=== PATIENT | male | born 1945 | race Caucasian/White ===

== ENCOUNTER 2018-06-09 20:04 | Inpatient (IN) | payer OTHER, MEDICARE ==
--- NOTE | 2018-06-09 20:18 | PDOC ---
History of Present Illness - General History Source: Patient Exam Limitations: No Limitations - History of Present Illness Initial Comments: 06/09/18 21:38 A portion of this note was documented by scribe services under my direction. I have reviewed the details of the note, within reason, and agree with the documentation. The case summary and management plan written by me. Assessment and plan: This is a 72-year-old male with history of non-insulin- dependent diabetes who has had a progressive infection in his foot for approximately one week. Patient said that he has some oral cactus fell on him and injured his foot and then it became infected. Patient also has gout and thinks that a component but this may be gout. Patient had a workup including CBC, comp, blood cultures, urine, urine cultures , EKG, chest x-ray. Patient's white count was normal and there is no left shift Patient's sodium was a little bit low, his BUN and creat were high as glucose was high and his alkaline phosphatase was mildly elevated. Patient given thank and Zosyn A CAT scan was done Patient will be admitted to a inpatient bed. <Dulce Fowler I - Last Filed: 06/09/18 21:38> - General History Source: Patient Exam Limitations: No Limitations - History of Present Illness Initial Comments: 06/09/18 21:57 The patient is a 72 year old male, with a significant PMH of lung cancer in the past (remission), CAD s/p stent kidney removal, HTN, gout and IDDM, who presents to the emergency room via EMS with left foot swelling that began approximately 1 week ago. The patient states a cactus fell on him two weeks ago infecting his left foot that has progressively worsened today. The patient notices pain when ambulating accompanied with a fever and chills. The patient denies chest pain, shortness of breath, headache and dizziness. Denies nausea, vomit, diarrhea and constipation. Denies dysuria, frequency, urgency and hematuria. PAST SURGICAL HISTORY: Left lobectomy FAMILY HISTORY: no pertinent history SOCIAL HISTORY: Former smoker (quit 30 years) MEDICATIONS: reviewed ALLERGIES: As per nursing notes Adult ROS General: No fevers or chills, no weakness, no weight loss HEENT: No change in vision. No sore throat,. No ear pain CardioVascular: No chest pain or shortness of breath Respiratory:No cough, or wheezing. Gastrointestinal: no nausea, vomiting, diarrhea or constipation, No rectal bleeding Genitourinary: No dysuria, hematuria, or frequency Musculoskeletal: No joint or muscle pain or swelling Neurologic: No headache, vertigo, dizziness or loss of consciousness Psychiatric: nor depression Skin: +Left foot swelling Endocrine: no increased thirst or abnormal weight change Allergic: no skin or latex allergy All other systems reviewed and normal Adult Exam: General: Well-nourished well-developed individual, no acute distress HEENT: Throat: Normal, tonsils normal, no erythema or exudate Neck: Supple, no meningeal signs, no lymphadenopathy Eyes::Pupils equal reactive and round, extraocular motion intact Chest: Nontender to palpation Cardiac: S1-S2 normal, regular rate and rhythm, no murmurs rubs or gallops Respiratory: Lungs clear to auscultation bilateral Abdomen: Soft, nondistended, normal bowel sounds, nontender to palpation diffusely Extremities: Warm, dry, no cyanosis, clubbing, or edema Skin: +Swelling erythematous extended to the mid foot increase warmth. Left great toe swollen and laceration to tissue. There is a wound to dorsum of the toe and plantar surface. No purulent discharge. Tenderness Neuro: Alert and oriented x3, nonfocal exam, grossly intact, normal gait Psych: Normal mood and affect <Magnus Guzman - Last Filed: 06/09/18 21:58> - General Chief Complaint: Pain, Acute Stated Complaint: INFECTION RIGHT FOOT Time Seen by Provider: 06/09/18 20:12 Past History - Past Medical History Cancer: Yes (LUNG, BLADDER) Cardiac Disorders: Yes (STENT X1) Diabetes: Yes (TYPE II) - Surgical History Lung Surgery: Yes (LEFT LOBECTOMY) - Suicide/Smoking/Psychosocial Hx Smoking History: Former smoker Have you smoked in the past 12 months: No If you are a former smoker, when did you quit?: 30 YRS AGO Hx Alcohol Use: Yes Drug/Substance Use Hx: No Substance Use Type: Alcohol <Dulce Fowler I - Last Filed: 06/09/18 21:38> <Magnus Guzman - Last Filed: 06/09/18 21:58> - Past Medical History Allergies/Adverse Reactions: Allergies Allergy/AdvReac Type Severity Reaction Status Date / Time No Known Allergies Allergy Verified 06/09/18 20:06 Home Medications: Ambulatory Orders Allopurinol 300 mg PO DAILY 10/12/16 Amlodipine Besylate [Norvasc -] 5 mg PO DAILY 10/12/16 Aspirin [ASA -] 81 mg PO DAILY 10/12/16 Atorvastatin Ca [Lipitor] 40 mg PO HS 10/12/16 Calcium Citrate/Vitamin D3 [Calcium Citrate - Vit D Caplet] 1 each PO DAILY Cholecalciferol (Vitamin D3) [Vitamin D3] 2,000 unit PO DAILY 10/12/16 Clopidogrel Bisulfate [Clopidogrel] 75 mg PO DAILY 10/12/16 Cyanocobalamin [Vitamin B12 -] 1,000 mcg PO DAILY 10/12/16 Fluoxetine HCl 40 mg PO DAILY 10/12/16 Glipizide [Glipizide ER] 10 mg PO DAILY 10/12/16 Insulin Detemir [Levemir Flextouch] 10 unit SQ HS 10/12/16 Levofloxacin [Levaquin] 750 mg PO DAILY #10 tablet 10/12/16 Liraglutide [Victoza -] 1.2 mg SQ DAILY@0700 10/12/16 Losartan Potassium 50 mg PO DAILY 10/12/16 Loteprednol Etabonate [Lotemax] 10 ml OD DAILY 10/12/16 Methylphenidate HCl 20 mg PO ASDIR PRN 10/12/16 Metoprolol Succinate [Toprol Xl -] 12.5 mg PO DAILY 10/12/16 Ropinirole HCl [Requip] 3 mg PO TID PRN 10/12/16 Vardenafil HCl [Levitra] 20 mg PO PRN PRN 10/12/16 *Physical Exam - Vital Signs Last Vital Signs Temp Pulse Resp BP Pulse Ox 98.6 F 65 16 104/56 98 06/09/18 20:07 06/09/18 20:07 06/09/18 20:07 06/09/18 20:07 06/09/18 20:07 <Magnus Guzman - Last Filed: 06/09/18 21:58> Heart Score/ECG Review - ECG Impressions Comment:: 06/09/18 21:01 Normal sinus rhythm. Possible left atrial enlargement . Left bundle branch block. Abnormal ECG. Vent Rate 80 bpm NH interval 192 ms QT/QTc 424/489 ms <Magnus Guzman - Last Filed: 06/09/18 21:58> ED Treatment Course - LABORATORY CBC & Chemistry Diagram: 06/09/18 20:40 06/09/18 20:40 <Dulce Fowler I - Last Filed: 06/09/18 21:38> - LABORATORY CBC & Chemistry Diagram: 06/09/18 20:40 06/09/18 20:40 <Magnus Guzman - Last Filed: 06/09/18 21:58> *DC/Admit/Observation/Transfer - Discharge Dispostion Decision to Admit order: Yes <Dulce Fowler I - Last Filed: 06/09/18 21:38> - Attestations Scribe Attestion: 06/09/18 21:58 Documentation prepared by Magnus Guzamn, acting as durable medical equipment technician for Dulce Fowler MD. <Magnus Guzman - Last Filed: 06/09/18 21:58> Diagnosis at time of Disposition: Cellulitis of foot - Discharge Dispostion Condition at time of disposition: Stable
[2018-06-09 21:04] LABS: HEMATOCRIT 42.6 % (35.4-49); HEMOGLOBIN 14.6 GM/dl (11.7-16.9); MCHC 34.3 g/dl (32.0-35.9); MEAN CELL VOLUME 93.6 fl (80-96); MEAN PLT VOLUME 8.5 fl (7.5-11.1); PLATELET COUNT 384 K/MM3 (134-434); RBC 4.55 M/mm3 (4.00-5.60); RDW 12.9 % (11.9-15.9); WHITE BLOOD COUNT 10.3 K/mm3 (4.0-10.8)
[2018-06-09] MEDS ORDERED: VANCOMYCIN 1,000 MG VIAL (RESTRICTED TO ID ONLY) ONE (21:13)
[2018-06-09 21:15] LABS: ALBUMIN 3.2 g/dl (3.5-5.0); ALK PHOS 123 U/L (32-92); ANION GAP 10 (8-16); BLOOD UREA NITROGEN 26 mg/dl (7-18); CALCIUM 8.9 mg/dl (8.4-10.2); CHLORIDE 100 mmol/L (98-107); CO2 23 mmol/L (22-28); CREATININE 1.6 mg/dl (0.6-1.3); GLUCOSE,RANDOM 159 mg/dl (74-106); POTASSIUM 4.7 mmol/L (3.5-5.1); SGOT/AST 21 U/L (10-42); SGPT/ALT 21 U/L (10-40); SODIUM 133 mmol/L (136-145); TOT PROT 6.7 g/dl (6.4-8.3)
[2018-06-09 21:45] LABS: PH,URINE 5.5 (4.5-8); URINE APPEARANCE Clear; URINE BILIRUBIN Negative (NEGATIVE); URINE COLOR Yellow; URINE GLUCOSE (UA) Negative (NEGATIVE); URINE KETONE Negative (NEGATIVE); URINE LEUK ESTERASE Negative (NEGATIVE); URINE NITRITE Negative (NEGATIVE); URINE UROBILINOGEN 0.2 (0.2-1.0)
[2018-06-09 21:46] LABS: URINE PROTEIN 2+ (NEGATIVE)
[2018-06-09] MEDS ORDERED: VANCOMYCIN 1 GRAM (PRE-DOCKED) 1,000 MG/250 ML BAG IVPB ONE (21:49)
[2018-06-09 21:51] LABS: PLATELET ESTIMATE ADEQUATE
[2018-06-09 21:52] LABS: URINE WBC 0-2 (0-2)
[2018-06-09 21:53] LABS: EPI CELLS FEW /HPF; URINE BACTERIA FEW /hpf (NEGATIVE)
--- NOTE | 2018-06-09 22:50 | HP ---
CHIEF COMPLAINT: L- Foot Infection PCP: HISTORY OF PRESENT ILLNESS: This is a 72-year-old male with history of ybl-brsyilb-jlhhgnnyk diabetes, CAD s /p stent, Glaucoma, R- Kidney Ca, Bladder Ca, Lung Ca (RT), Chronic Alcohol. Who presents to the ED with a progressive infection in his foot for approximately one week. Patient reports that he has some oral cactus fell on him and injured his foot and then it became infected. Patient also states" he has gout and thinks that a component". Patient reports walking barefoot in his front and backward generally. Patient denies fever chills, cough, SOB, CP, palpitations. Patient reports feeling depressed and stays home most of the time. Patient denies suicidal or homicidal ideation ER course was notable for: (1) CT of lower extremity- osteomyelitis (2) Na 133 (3) Recent Travel: None PAST MEDICAL HISTORY: See HPI PAST SURGICAL HISTORY: Cardiac Stent Cataract removed Corneal Replacement R-Eye Social History: Smoking: Former Alcohol: Daily Drugs: Denies Lives alone, retired Family History: Non-contributory Allergies No Known Allergies Allergy (Verified 06/09/18 20:06) HOME MEDICATIONS: Home Medications Medication Instructions Recorded Allopurinol 300 mg PO DAILY 10/12/16 Amlodipine Besylate [Norvasc -] 5 mg PO DAILY 10/12/16 Aspirin [ASA -] 81 mg PO DAILY 10/12/16 Atorvastatin Ca [Lipitor] 40 mg PO HS 10/12/16 Calcium Citrate/Vitamin D3 1 each PO DAILY 10/12/16 [Calcium Citrate - Vit D Caplet] Cholecalciferol (Vitamin D3) 2,000 unit PO DAILY 10/12/16 [Vitamin D3] Clopidogrel Bisulfate [Clopidogrel] 75 mg PO DAILY 10/12/16 Cyanocobalamin [Vitamin B12 -] 1,000 mcg PO DAILY 10/12/16 Fluoxetine HCl 40 mg PO DAILY 10/12/16 Glipizide [Glipizide ER] 10 mg PO DAILY 10/12/16 Insulin Detemir [Levemir Flextouch] 10 unit SQ HS 10/12/16 Levofloxacin [Levaquin] 750 mg PO DAILY #10 tablet 10/12/16 Liraglutide [Victoza -] 1.2 mg SQ DAILY@0700 10/12/16 Losartan Potassium 50 mg PO DAILY 10/12/16 Loteprednol Etabonate [Lotemax] 10 ml OD DAILY 10/12/16 Methylphenidate HCl 20 mg PO ASDIR PRN 10/12/16 Metoprolol Succinate [Toprol Xl -] 12.5 mg PO DAILY 10/12/16 Ropinirole HCl [Requip] 3 mg PO TID PRN 10/12/16 Vardenafil HCl [Levitra] 20 mg PO PRN PRN 10/12/16 REVIEW OF SYSTEMS CONSTITUTIONAL: Absent: fever, chills, diaphoresis, generalized weakness, malaise, loss of appetite, weight change HEENT: Absent: rhinorrhea, nasal congestion, throat pain, throat swelling, difficulty swallowing, mouth swelling, ear pain, eye pain, visual changes CARDIOVASCULAR: Absent: chest pain, syncope, palpitations, irregular heart rate, lightheadedness , peripheral edema RESPIRATORY: Absent: cough, shortness of breath, dyspnea with exertion, orthopnea, wheezing, stridor, hemoptysis GASTROINTESTINAL: Absent: abdominal pain, abdominal distension, nausea, vomiting, diarrhea, constipation, melena, hematochezia GENITOURINARY: Absent: dysuria, frequency, urgency, hesitancy, hematuria, flank pain, genital pain MUSCULOSKELETAL: Absent: myalgia, arthralgia, joint swelling, back pain, neck pain SKIN: redness and swelling to L- great toe/foot Absent: rash, itching, pallor HEMATOLOGIC/IMMUNOLOGIC: Absent: easy bleeding, easy bruising, lymphadenopathy, frequent infections ENDOCRINE: Absent: unexplained weight gain, unexplained weight loss, heat intolerance, cold intolerance NEUROLOGIC: Absent: headache, focal weakness or paresthesias, dizziness, unsteady gait, seizure, mental status changes, bladder or bowel incontinence PSYCHIATRIC: depression Absent: anxiety, suicidal or homicidal ideation, hallucinations. PHYSICAL EXAMINATION Vital Signs - 24 hr 06/09/18 20:07 Temperature 98.6 F Pulse Rate 65 Respiratory 16 Rate Blood Pressure 104/56 O2 Sat by Pulse 98 Oximetry (%) GENERAL: Awake, alert, and fully oriented, in no acute distress. HEAD: Normal with no signs of trauma. EYES: Pupils equal, round and reactive to light, extraocular movements intact, sclera anicteric, conjunctiva clear. No lid lag. EARS, NOSE, THROAT: Ears normal, nares patent, oropharynx clear without exudates. Moist mucous membranes. NECK: Normal range of motion, supple without lymphadenopathy, JVD, or masses. LUNGS: Breath sounds equal, clear to auscultation bilaterally. No wheezes, and no crackles. No accessory muscle use. HEART: Regular rate and rhythm, normal S1 and S2 without murmur, rub or gallop. ABDOMEN: Soft, nontender, not distended, normoactive bowel sounds, no guarding, no rebound, no masses. No hepatomegaly or splenomegaly. MUSCULOSKELETAL: Normal range of motion at all joints. No bony deformities or tenderness. No CVA tenderness. UPPER EXTREMITIES: 2+ pulses, warm, well-perfused. No cyanosis. No clubbing. No peripheral edema. LOWER EXTREMITIES: 2+ pulses, warm, well-perfused. No calf tenderness. +2 L- foot peripheral edema. NEUROLOGICAL: Cranial nerves II-XII intact. Normal speech. Normal gait. PSYCHIATRIC: Cooperative. Good eye contact. Appropriate mood and affect. SKIN: Warm, dry, normal turgor, normal capillary refill. no rashes, +erythema to L- great toe and dorsal aspect of foot with a lac to L- great toe, no purulent drainage noted. Laboratory Results - last 24 hr 06/09/18 06/09/18 06/09/18 20:40 20:40 20:40 WBC 10.3 RBC 4.55 Hgb 14.6 Hct 42.6 MCV 93.6 MCH 32.0 MCHC 34.3 RDW 12.9 Plt Count 384 MPV 8.5 Absolute Neuts (auto) 8.7 Neutrophils % No Result Required. Neutrophils % (Manual) 90.0 H Lymphocytes % No Result Required. Lymphocytes % (Manual) 7.0 L Platelet Estimate Adequate Sodium 133 L Potassium 4.7 Chloride 100 Carbon Dioxide 23 Anion Gap 10 BUN 26 H Creatinine 1.6 H Creat Clearance w eGFR 42.82 Random Glucose 159 H Calcium 8.9 Total Bilirubin 1.0 AST 21 ALT 21 Alkaline Phosphatase 123 H Creatine Kinase Troponin I 0.04 Total Protein 6.7 Albumin 3.2 L Urine Color Urine Appearance Urine pH Ur Specific [place] Urine Protein Urine Glucose (UA) Urine Ketones Urine Blood Urine Nitrite Urine Bilirubin Urine Urobilinogen Ur Leukocyte Esterase Urine RBC Urine WBC Ur Epithelial Cells Urine Bacteria Alcohol, Quantitative 06/09/18 06/09/18 06/09/18 20:40 20:40 21:40 WBC RBC Hgb Hct MCV MCH MCHC RDW Plt Count MPV Absolute Neuts (auto) Neutrophils % Neutrophils % (Manual) Lymphocytes % Lymphocytes % (Manual) Platelet Estimate Sodium Potassium Chloride Carbon Dioxide Anion Gap BUN Creatinine Creat Clearance w eGFR Random Glucose Calcium Total Bilirubin AST ALT Alkaline Phosphatase Creatine Kinase 56 Troponin I Total Protein Albumin Urine Color Yellow Urine Appearance Clear Urine pH 5.5 Ur Specific [place] 1.020 Urine Protein 2+ H Urine Glucose (UA) Negative Urine Ketones Negative Urine Blood Trace-lysed H Urine Nitrite Negative Urine Bilirubin Negative Urine Urobilinogen 0.2 Ur Leukocyte Esterase Negative Urine RBC 2-5 Urine WBC 0-2 Ur Epithelial Cells Few Urine Bacteria Few Alcohol, Quantitative < 5.0 ASSESSMENT/PLAN: 72 y/o man Admitted to [facility] for Cellulitis to L- foot, Diabetic Wound for further evaluation of their emergent condition. Plan: 1. ID: Cellulitis of L- foot, Diabetic Wound- CT of lower extremity showed osteomyelitis, Patient is afebrile, no leukocytosis, however +neutrophilia. Blood Cultures pending, Continue Vanco, Zosyn, Appreciate ID consult, Appreciate Vascular consult, Monitor CBC and vitals, Elevate extremity, neurovascular checks 2. CAD- s/p stent, continue home meds 3. Diabetes Mellitus- stable, BGMs, continue home meds 4. Hypertension- stable, continue home meds 5. Depression- stable, continue home meds, f/u with psych and continue group therapy outpatient 6. FEN- PO fluids as tolerated., Replete lytes prn, Low Na, Diabetic Diet 7. DVT ppx- SCDs, Heparin SQ Code Status: Full Code Dispo: Requires Inpatient Care Problem List - Problem (1) Cellulitis of foot Code(s): L03.119 - CELLULITIS OF UNSPECIFIED PART OF LIMB (2) Osteomyelitis Code(s): M86.9 - OSTEOMYELITIS, UNSPECIFIED (3) Diabetic foot infection Code(s): E11.628 - TYPE 2 DIABETES MELLITUS WITH OTHER SKIN COMPLICATIONS; L08.9 - LOCAL INFECTION OF THE SKIN AND SUBCUTANEOUS TISSUE, UNSP (4) Foreign body in foot Code(s): S90.859A - SUPERFICIAL FOREIGN BODY, UNSPECIFIED FOOT, INIT ENCNTR Qualifiers: Encounter type: initial encounter Laterality: right Qualified Code(s): S90.851A - Superficial foreign body, right foot, initial encounter (5) Diabetes mellitus Code(s): E11.9 - TYPE 2 DIABETES MELLITUS WITHOUT COMPLICATIONS (6) HTN (hypertension) Code(s): I10 - ESSENTIAL (PRIMARY) HYPERTENSION (7) Depression Code(s): F32.9 - MAJOR DEPRESSIVE DISORDER, SINGLE EPISODE, UNSPECIFIED Visit type - Emergency Visit Emergency Visit: Yes ED Registration Date: 06/09/18 Care time: The patient presented to the Emergency Department on the above date and was hospitalized for further evaluation of their emergent condition. - New Patient This patient is new to me today: Yes Date on this admission: 06/09/18 - Critical Care Critical Care patient: No Hospitalist Screening - Colonoscopy Questionnaire Colonoscopy Questionnaire: Colonoscopy Questionnaire - Patient: 50 - 75 years old and never had a screening colonoscopy: Unknown History of colon or rectal polyps, or CA: Unknown History of IBD, Crohn's disease or UC: Unknown History of abdominal radiation therapy as a child: Unknown - Relative: 1 with colon or rectal CA, or polyps at age 60 or younger: Unknown Colon or rectal CA diagnosed at age 45 or younger: Unknown Multiple relatives with colon or rectal CA: Unknown - Outcome: Screening Result: Negative Screen
[2018-06-09] MEDS ORDERED: morphine CARPU-JECT 2 MG/1 ML DISP.SYRIN IVPUSH ONE (23:03)
[2018-06-09] MEDS ORDERED: morphine SULFATE 4 MG/ML VIAL ONE (23:04)
[2018-06-10 00:17] VITALS: BMI 23.1
[2018-06-10] MEDS ORDERED: PIPERACILLIN/TAZOB 3.375 GM 3.375 GM in DEXTROSE 5%-WATER - 50 ML IVPB SCH ×2 (04:08→04:45)
[2018-06-10] MEDS: morphine CARPU-JECT 2 MG/1 ML DISP.SYRIN IVPUSH PRN (07:53)
[2018-06-10 08:11] LABS: EOS % 0.1 % (0-4.5); HEMATOCRIT 38.6 % (35.4-49); HEMOGLOBIN 12.9 GM/dl (11.7-16.9); LYMPH % 6.4 % (8-40); MCH 31.7 pg (25.7-33.7); MCHC 33.5 g/dl (32.0-35.9); MEAN CELL VOLUME 94.6 fl (80-96); MEAN PLT VOLUME 8.6 fl (7.5-11.1); MONO % 9.2 % (3.8-10.2); NEUT % 83.3 % (42.8-82.8); PLATELET COUNT 300 K/MM3 (134-434); RBC 4.07 M/mm3 (4.00-5.60); RDW 13.1 % (11.9-15.9); WHITE BLOOD COUNT 9.7 K/mm3 (4.0-10.8)
[2018-06-10 08:21] LABS: ANION GAP 6 (8-16); BLOOD UREA NITROGEN 23 mg/dl (7-18); CALCIUM 8.3 mg/dl (8.4-10.2); CHLORIDE 103 mmol/L (98-107); CO2 24 mmol/L (22-28); CREATININE 1.5 mg/dl (0.6-1.3); GLUCOSE,RANDOM 93 mg/dl (74-106); POTASSIUM 4.2 mmol/L (3.5-5.1); SODIUM 133 mmol/L (136-145)
--- NOTE | 2018-06-10 09:09 | CONSULT ---
- Consultation REQUESTING PROVIDER: Kev Cuellar CONSULT REQUEST: We have been asked to surgically evaluate this patient for foot infection x1 week PCP: Amita Pedroza NP HPI: Called to rufus 72 yo male with PMHx as noted below. Comes to [facility] w/ c/o foot infection times 1 week. States he thinks he may have stepped on something which precipitated the event. Admits that he tried to use a syringe to dig-out what he thought was the object from his big toe. While in the ER he had a LE CT which confirms osteomyelitis. He was started on Zosyn and Vanco. Denies n/v/f/c , CP, SOB PMHx: NIDDM, HTN, Gout, CAD, Glaucoma, R- Kidney Ca, Bladder Ca, Lung Ca (RT), Chronic Alcohol PSHx: Cardiac Stent Home Meds Allopurinol 300 mg PO DAILY 10/12/16 Amlodipine Besylate [Norvasc -] 5 mg PO DAILY 10/12/16 Aspirin [ASA -] 81 mg PO DAILY 10/12/16 Atorvastatin Ca [Lipitor] 40 mg PO HS 10/12/16 Calcium Citrate/Vitamin D3 [Calcium Citrate - Vit D Caplet] 1 each PO DAILY Cholecalciferol (Vitamin D3) [Vitamin D3] 2,000 unit PO DAILY 10/12/16 Clopidogrel Bisulfate [Clopidogrel] 75 mg PO DAILY 10/12/16 Cyanocobalamin [Vitamin B12 -] 1,000 mcg PO DAILY 10/12/16 Fluoxetine HCl 40 mg PO DAILY 10/12/16 Glipizide [Glipizide ER] 10 mg PO DAILY 10/12/16 Insulin Detemir [Levemir Flextouch] 10 unit SQ HS 10/12/16 Levofloxacin [Levaquin] 750 mg PO DAILY #10 tablet 10/12/16 Liraglutide [Victoza -] 1.2 mg SQ DAILY@0700 10/12/16 Losartan Potassium 50 mg PO DAILY 10/12/16 Loteprednol Etabonate [Lotemax] 10 ml OD DAILY 10/12/16 Methylphenidate HCl 20 mg PO ASDIR PRN 10/12/16 Metoprolol Succinate [Toprol Xl -] 12.5 mg PO DAILY 10/12/16 Ropinirole HCl [Requip] 3 mg PO TID PRN 10/12/16 Vardenafil HCl [Levitra] 20 mg PO PRN PRN 10/12/16 Allergies: NKDA ROS: CONSTITUTIONAL: Absent: fever, chills, diaphoresis, generalized weakness, malaise, loss of appetite, weight change CARDIOVASCULAR: Absent: chest pain, syncope, palpitations, irregular heart rate , lightheadedness, peripheral edema RESPIRATORY: Absent: cough, shortness of breath, dyspnea with exertion, wheezing , stridor, hemoptysis GASTROINTESTINAL:Absent: abdominal pain, abdominal distension, nausea, vomiting , diarrhea, constipation, melena, GENITOURINARY: Absent: dysuria, frequency, urgency, hesitancy, hematuria, flank pain, genital pain MUSCULOSKELETAL: Absent: myalgia, arthralgia, joint swelling, back pain, neck pain SKIN: Absent: rash, itching, pallor HEMATOLOGIC/IMMUNOLOGIC: Absent: easy bleeding, easy bruising, lymphadenopathy NEUROLOGIC: Absent: headache, focal weakness, paresthesias, dizziness, unsteady gait, seizure, mental status changes, PSYCHIATRIC: Absent: anxiety, depression, suicidal or homicidal ideation, hallucinations. PE: GENERAL: Awake, alert, and fully oriented, nad HEAD: NC. AT. EYES: PERRL, sclera anicteric, conjunctiva clear. NECK: Normal ROM, supple without lymphadenopathy, JVD, or masses. LUNGS: cta bilat HEART: RRR ABDOMEN: Soft, NT. ND. MUSCULOSKELETAL: Normal ROM at all joints. No bony deformities or tenderness. No CVAT UE: 2+ pulses, warm, well-perfused. No cyanosis. Cap refill <2 seconds. No peripheral edema. LE: RLE unremarkable. LLE: foot w/ +2 edema, hallux grossly swollen/inflammed. No ballotment/induration/fluctuance/discharge. Palpable DP NEUROLOGICAL: Normal speech, gait not observed. PSYCH: Cooperative. Good eye contact. Appropriate mood and affect. SKIN: Warm, dry, normal turgor, no rashes or lesions noted. Last Vital Signs Temp Pulse Resp BP Pulse Ox 99.7 F H 91 H 17 122/47 93 L 06/10/18 04:44 06/10/18 04:44 06/10/18 04:44 06/10/18 04:44 06/10/18 06:30 CBC, BMP 06/10/18 07:15 06/10/18 07:15 Problem List - Problems (1) Diabetic foot infection Assessment/Plan: Cont IV ABX Recommend Podiatry Consult as he may need I&D/debridement/bone bx Tylenol for fever > 100.3F ID Consult as he will require intermodal customer service ABX --> if IV he will need a PICC No further vascular intervention Cont medical management Re-consult surgery PRN Code(s): E11.628 - TYPE 2 DIABETES MELLITUS WITH OTHER SKIN COMPLICATIONS; L08.9 - LOCAL INFECTION OF THE SKIN AND SUBCUTANEOUS TISSUE, UNSP (2) Depression Code(s): F32.9 - MAJOR DEPRESSIVE DISORDER, SINGLE EPISODE, UNSPECIFIED (3) Osteomyelitis Code(s): M86.9 - OSTEOMYELITIS, UNSPECIFIED Visit type - Case Type Case Type: ED Admission - Emergency Emergency Visit: Yes ED Registration Date: 06/09/18 Care time: The patient presented to the Emergency Department on the above date and was hospitalized for further evaluation of their emergent condition. - Critical Care Critical Care patient: Yes Total Critical Care Time:
[2018-06-10] MEDS: HEPARIN NA (PORCINE) 5,000 UNITS/ML 1ML VIAL SQ SCH ×2 (09:25→21:39)
--- NOTE | 2018-06-10 09:41 | PN ---
Progress Note (short form) - Note Progress Note: Cellulitis/ ST abscess / osteomyelitis L great toe Cellulitis L foot L pleural effusion vs. infiltrate vs. post-op changes ( Hx lobectomy) IDDM Hx gout Await c/s Podiatry evlauation for I&D Empiric vancomycin/ zosyn ? CT chest
[2018-06-10] MEDS ORDERED: VANCOMYCIN 1,000 MG in DEXTROSE 5%-WATER - 250 ML IVPB SCH (10:00)
[2018-06-10] MEDS: VANCOMYCIN 1 GRAM (PRE-DOCKED) 1,000 MG/250 ML BAG IVPB SCH ×2 (10:30→21:39)
[2018-06-10] MEDS: PIPERACILLIN/TAZOB 3.375 GM 3.375 GM/50 ML BAG IVPB SCH ×2 (10:30→17:04)
--- NOTE | 2018-06-10 12:22 | CONSULT ---
Consult - text type - Consultation Consultation Note: Pt seen in bed for cellulitis left foot. States he has been diabetic for 30 years. Patient states he injured foot in his yard a few days ago. Patient also states he has a history of gout. Taking allopurinol. vss, Tmax 99.7. +cellulitis left big toe, +grade 1-2 wound sub left big toe, ct description consistent with om, however has a hx of gout as well and can be related to chronic gout, wbc=9.7, esr, +mild fluctuance, -drainage, r/o om erythema/cellulitis r/o tophaceous gout Awaiting MRI, ESR, CRP, HGBA!C, URIC ACID. Continue IVABX. Possible I&D if no improvement. ID on case. Vascular consult discussed with vascular steam boiler fireman Carl. will follow.
--- NOTE | 2018-06-10 13:16 | EKG ---
Test Reason : Blood Pressure : / mmHG Vent. Rate : 080 BPM Atrial Rate : 080 BPM P-R Int : 192 ms QRS Dur : 164 ms QT Int : 424 ms P-R-T Axes : 043 -19 136 degrees QTc Int : 489 ms NORMAL SINUS RHYTHM POSSIBLE LEFT ATRIAL ENLARGEMENT LEFT BUNDLE BRANCH BLOCK ABNORMAL ECG NO PREVIOUS ECGS AVAILABLE Confirmed by Singh Peres MD ([id number]) on 06/10/2018 1:15:18 PM Referred By: DR RAZA Confirmed By:Singh Peres MD
--- NOTE | 2018-06-10 13:54 | PN ---
Physical Exam: SUBJECTIVE: Patient seen and examined at bedside. OBJECTIVE: Vital Signs Period Temp Pulse Resp BP Sys/Delgado Pulse Ox Last 24 Hr 98.6 F-99.7 F 65-91 16-20 104-144/47-71 93-98 GENERAL: The patient is awake, alert, and fully oriented, in no acute distress. LUNGS: CTA HEART: Regular rate and rhythm, S1, S2 ABDOMEN: Soft, nontender, nondistended LEFT LE: great toe is swollen, erythemous, peeling skin, dry Laboratory Results - last 24 hr 06/09/18 06/09/18 06/09/18 20:40 20:40 20:40 WBC 10.3 RBC 4.55 Hgb 14.6 Hct 42.6 MCV 93.6 MCH 32.0 MCHC 34.3 RDW 12.9 Plt Count 384 MPV 8.5 Absolute Neuts (auto) 8.7 Neutrophils % No Result Required. Neutrophils % (Manual) 90.0 H Lymphocytes % No Result Required. Lymphocytes % (Manual) 7.0 L Monocytes % Eosinophils % Basophils % Platelet Estimate Adequate Sodium 133 L Potassium 4.7 Chloride 100 Carbon Dioxide 23 Anion Gap 10 BUN 26 H Creatinine 1.6 H Creat Clearance w eGFR 42.82 Random Glucose 159 H Calcium 8.9 Total Bilirubin 1.0 AST 21 ALT 21 Alkaline Phosphatase 123 H Creatine Kinase Troponin I 0.04 Total Protein 6.7 Albumin 3.2 L Urine Color Urine Appearance Urine pH Ur Specific [place] Urine Protein Urine Glucose (UA) Urine Ketones Urine Blood Urine Nitrite Urine Bilirubin Urine Urobilinogen Ur Leukocyte Esterase Urine RBC Urine WBC Ur Epithelial Cells Urine Bacteria Alcohol, Quantitative 06/09/18 06/09/18 06/09/18 20:40 20:40 21:40 WBC RBC Hgb Hct MCV MCH MCHC RDW Plt Count MPV Absolute Neuts (auto) Neutrophils % Neutrophils % (Manual) Lymphocytes % Lymphocytes % (Manual) Monocytes % Eosinophils % Basophils % Platelet Estimate Sodium Potassium Chloride Carbon Dioxide Anion Gap BUN Creatinine Creat Clearance w eGFR Random Glucose Calcium Total Bilirubin AST ALT Alkaline Phosphatase Creatine Kinase 56 Troponin I Total Protein Albumin Urine Color Yellow Urine Appearance Clear Urine pH 5.5 Ur Specific [place] 1.020 Urine Protein 2+ H Urine Glucose (UA) Negative Urine Ketones Negative Urine Blood Trace-lysed H Urine Nitrite Negative Urine Bilirubin Negative Urine Urobilinogen 0.2 Ur Leukocyte Esterase Negative Urine RBC 2-5 Urine WBC 0-2 Ur Epithelial Cells Few Urine Bacteria Few Alcohol, Quantitative < 5.0 06/10/18 06/10/18 07:15 07:15 WBC 9.7 RBC 4.07 Hgb 12.9 Hct 38.6 MCV 94.6 MCH 31.7 MCHC 33.5 RDW 13.1 Plt Count 300 D MPV 8.6 Absolute Neuts (auto) 8.1 Neutrophils % 83.3 H Neutrophils % (Manual) Lymphocytes % 6.4 L Lymphocytes % (Manual) Monocytes % 9.2 Eosinophils % 0.1 Basophils % 1.0 Platelet Estimate Sodium 133 L Potassium 4.2 Chloride 103 Carbon Dioxide 24 Anion Gap 6 L BUN 23 H Creatinine 1.5 H Creat Clearance w eGFR 46.13 Random Glucose 93 D Calcium 8.3 L Total Bilirubin AST ALT Alkaline Phosphatase Creatine Kinase Troponin I Total Protein Albumin Urine Color Urine Appearance Urine pH Ur Specific [place] Urine Protein Urine Glucose (UA) Urine Ketones Urine Blood Urine Nitrite Urine Bilirubin Urine Urobilinogen Ur Leukocyte Esterase Urine RBC Urine WBC Ur Epithelial Cells Urine Bacteria Alcohol, Quantitative Active Medications Generic Name Dose Route Start Last Admin Trade Name Freq PRN Reason Stop Dose Admin Heparin Sodium (Porcine) 5,000 unit 06/10/18 10:00 06/10/18 09:25 Heparin - SQ 5,000 unit BID KEVEN Administration Vancomycin HCl 1,000 mg in 250 mls @ 166.667 mls/hr 06/10/18 10:00 06/10/18 10:30 Vancomycin (Pre-Docked) IVPB 166.667 mls/hr Q12H KEVEN Administration Protocol Piperacillin Sod/Tazobactam Sod 3.375 gm in 50 mls @ 100 mls/hr 06/10/18 10: 00 06/10/18 10:30 Zosyn 3.375gm Ivpb (Pre-Docked) IVPB 100 mls/hr Q8H-IV KEVEN Administration Protocol Morphine Sulfate 2 mg 06/10/18 03:11 06/10/18 07:53 Morphine Injection - IVPUSH 2 mg Q6H PRN Administration PAIN LEVEL 7 - 10 ASSESSMENT/PLAN: 72 year-old male with a PMH significant for HTN, CAD s/p stent, IDDM, lung cancer (treated),and gout. Admitted for left great toe cellulitis. Left great toe cellulitis r/o osteo --8/20 CT: bone destruction first distal phalanx with small adjacent bone fragments, significant swelling consistent with infection v. osteo --MRI pending --continue empiric Vanc and Zosyn --ID following --podiatry following --seen and evaluated by vascular, no further intevention Gout --uric acid pending --continue allopurinol Elevated creatinine --Cr 1.6 on admission, 1.5 today, baseline unknown --hold home Losartan IDDM --Levemir --Novolog sliding scale coverage --HgbA1C Coronary artery disease --continue ASA, Plavix, metoprolol Hypertension --continue metoprolol, amlodipine; hold losartan due to elevated Cr Restless leg syndrome --continue ropirinole Depression --continue fluoxetine FEN Fluids: PO intake adequate Electrolytes: replete as indicated Nutrition: diabetic low sodium DVT prophylaxis: subq heparin, oob, ambulation Dispo: continues to require inpatient care. Full code. Visit type - Emergency Visit Emergency Visit: Yes ED Registration Date: 06/09/18 Care time: The patient presented to the Emergency Department on the above date and was hospitalized for further evaluation of their emergent condition. - New Patient This patient is new to me today: Yes Date on this admission: 06/12/18 - Critical Care Critical Care patient: No
[2018-06-10] MEDS ORDERED: rOPINIRole HCL 1 MG TABLET (FP) PO PRN (14:37)
[2018-06-10] MEDS ORDERED: METHYLPHENIDATE HCL 20 MG PO PRN (14:37)
[2018-06-10] MEDS ORDERED: PATIENT'S OWN MEDICATION (NON-FORMULARY) (Fluoxetine Hcl [Fluoxetine Hcl] 40 MG) PO SCH (14:45)
[2018-06-10] MEDS: metoPROLOL SUCCINATE 25 MG TAB.SR.24H (FP) PO SCH (15:00)
[2018-06-10] MEDS: ASPIRIN 81 MG CHEWABLE TABLETS PO SCH (15:00)
[2018-06-10] MEDS: CLOPIDOGREL BISULFATE 75 MG TABLET (FP) PO SCH (15:00)
[2018-06-10] MEDS: ATORVASTATIN CA 40 MG TABLET (FP) PO SCH (21:39)
[2018-06-10] MEDS: INSULIN (LEVEMIR) 100 UNITS/ML UNITS SQ SCH (21:54)
[2018-06-11] MEDS: PIPERACILLIN/TAZOB 3.375 GM 3.375 GM/50 ML BAG IVPB SCH ×3 (01:27→18:55)
[2018-06-11 08:35] LABS: URIC ACID 2.9 mg/dl (2.6-7.2)
--- NOTE | 2018-06-11 09:18 | CONS ---
INFECTIOUS DISEASE CONSULTATION DATE OF CONSULTATION: DATE OF DICTATION: 06/10/2018 The patient is a 72-year-old, diabetic male who is evaluated for diabetic foot infection. The patient gives an unreliable history. He does not have any specific recall for any traumatic injury to his left lower extremity. He states he was outdoors working around his house, wearing sandals, when a cactus fell on his foot. He also stated the cactus fell on his entire body. He developed worsening pain, swelling, and erythema of the left great toe and right foot. He began empiric treatment for gout as he has had gout in the past. In addition, he attempted to aspirate fluid from his foot using a syringe without success. Symptoms worsened. He presented to the emergency room where he was noted to have cellulitis of the left foot with soft tissue abscess over the dorsum of the left great toe. A CAT scan of the foot shows destruction of the distal 1st phalanx and bone fragments consistent with osteomyelitis. He denies any associated fever or chills. Denies any purulent wound drainage. PAST MEDICAL HISTORY: Positive for insulin-dependent diabetes mellitus, lung cancer, coronary artery disease status post coronary artery stent, hypertension, gouty arthritis, renal carcinoma, bladder carcinoma. PAST SURGICAL HISTORY: Status post left lobectomy. ALLERGIES: No known allergies. MEDICATIONS: At the present time include heparin, morphine, vancomycin, and Zosyn. HOME MEDICATIONS: Include Requip, Toprol, losartan, glipizide, Plavix, Lipitor, aspirin, Norvasc, allopurinol. SOCIAL HISTORY: He is a former smoker. He lives at home with his . SYSTEMS REVIEW: Neurologic: No loss of consciousness, seizure activity, focal weakness. Cardiac: Negative chest pain and palpitations. Respiratory: Negative cough or sputum production. Gastrointestinal: Negative vomiting or diarrhea. Genitourinary: Negative for urinary tract infection. LABORATORY DATA: White count 9.7, hematocrit 38.6, platelet count 300. BUN 23, creatinine 1.5. Chest x-ray shows right basilar atelectasis and possible infiltrate. PHYSICAL EXAMINATION: General: He is awake and alert. He is not acutely toxic appearing. Vital Signs: Temperature 99.7; blood pressure 122/47; pulse 91, regular; respirations 17 per minute. HEENT: Sclerae are anicteric. Heart: Sounds S1, S2. Lungs: Clear. Abdomen: Soft. There is a healed midline surgical wound. Lower Extremities: There is marked swelling of the left foot. It appears to be twice the size of his right foot. It is warm and tender with slight erythema. There is more intense erythema present over the dorsal aspect of the left great toe with a fluctuant area present over the left great toe, suggestive of abscess. No expressible pus. No lymphangitic streaking. IMPRESSION: 1. Cellulitis/soft tissue abscess/osteomyelitis of the left great toe. 2. Cellulitis of the left foot. 3. Insulin-dependent diabetes mellitus. 4. History of gouty arthritis. 5. Possible left lower lobe infiltrate. Await culture results. Podiatry evaluation for possible incision and drainage of left foot abscess. Empiric antibiotic coverage with vancomycin and Zosyn. Will order CAT scan of the chest to further assess the left base changes. Will follow. Thank you for the kind referral. MIGDALIA DONG M.D. [id number]
[2018-06-11] MEDS: VANCOMYCIN 1 GRAM (PRE-DOCKED) 1,000 MG/250 ML BAG IVPB SCH ×2 (09:46→21:40)
[2018-06-11] MEDS: metoPROLOL SUCCINATE 25 MG TAB.SR.24H (FP) PO SCH (09:47)
[2018-06-11] MEDS: FLUoxetine HCL 20 MG CAPSULE (FP) PO SCH (09:47)
[2018-06-11] MEDS: ASPIRIN 81 MG CHEWABLE TABLETS PO SCH (09:47)
[2018-06-11] MEDS: amLODIPine BESYLATE 5 MG TABLET (FP) PO SCH (09:48)
[2018-06-11] MEDS: HEPARIN NA (PORCINE) 5,000 UNITS/ML 1ML VIAL SQ SCH ×2 (09:49→21:40)
[2018-06-11] MEDS: LOTEPREDNOL ETABONATE OD SCH (09:50)
[2018-06-11] MEDS: ALLOPURINOL 300 MG TABLET (FP) PO SCH (09:51)
[2018-06-11] MEDS: CLOPIDOGREL BISULFATE 75 MG TABLET (FP) PO SCH (09:51)
--- NOTE | 2018-06-11 10:14 | PN ---
Progress Note, Physician History of Present Illness: Awake, alert Reports less foot pain and swelling Low grade temp WBC WNL Cultures pending - Current Medication List Current Medications: Active Medications Allopurinol (Zyloprim -) 300 mg PO DAILY [facility] Last Admin: 06/11/18 09:51 Dose: 300 mg Amlodipine Besylate (Norvasc -) 5 mg PO DAILY [facility] Last Admin: 06/11/18 09:48 Dose: 5 mg Aspirin (Asa -) 81 mg PO DAILY [facility] Last Admin: 06/11/18 09:47 Dose: 81 mg Atorvastatin Calcium (Lipitor -) 40 mg PO HS [facility] Last Admin: 06/10/18 21:39 Dose: 40 mg Clopidogrel Bisulfate (Plavix -) 75 mg PO DAILY [facility] Last Admin: 06/11/18 09:51 Dose: 75 mg Fluoxetine HCl (Prozac -) 40 mg PO DAILY [facility] Last Admin: 06/11/18 09:47 Dose: 40 mg Heparin Sodium (Porcine) (Heparin -) 5,000 unit SQ BID [facility] Last Admin: 06/11/18 09:49 Dose: 5,000 unit Vancomycin HCl (Vancomycin (Pre-Docked)) 1,000 mg in 250 mls @ 166.667 mls/hr IVPB Q12H [facility]; Protocol Last Admin: 06/11/18 09:46 Dose: 166.667 mls/hr Piperacillin Sod/Tazobactam Sod (Zosyn 3.375gm Ivpb (Pre-Docked)) 3.375 gm in 50 mls @ 100 mls/hr IVPB Q8H-IV [facility]; Protocol Last Admin: 06/11/18 09:47 Dose: 100 mls/hr Insulin Detemir (Levemir Vial) 10 units SQ HS [facility] Last Admin: 06/10/18 21:54 Dose: 10 units Metoprolol Succinate (Toprol Xl -) 12.5 mg PO DAILY [facility] Last Admin: 06/11/18 09:47 Dose: 12.5 mg Morphine Sulfate (Morphine Injection -) 2 mg IVPUSH Q6H PRN PRN Reason: PAIN LEVEL 7 - 10 Last Admin: 06/10/18 07:53 Dose: 2 mg Non-Formulary Medication (Loteprednol Etabonate [Lotemax]) 10 ml OD DAILY [facility] Last Admin: 06/11/18 09:50 Dose: Not Given Non-Formulary Medication (Methylphenidate Hcl [Methylphenidate Hcl]) 20 mg PO ASDIR PRN PRN Reason: HYPERACTIVITY Ropinirole HCl (Requip -) 3 mg PO TID PRN PRN Reason: RESTLESS LEG SYNDROME - Objective Vital Signs: Vital Signs Temperature 98.4 F 06/11/18 04:00 Pulse Rate 78 06/11/18 04:00 Respiratory Rate 20 06/11/18 04:00 Blood Pressure 138/60 06/11/18 04:00 O2 Sat by Pulse Oximetry (%) 94 L 06/10/18 22:16 Constitutional: Yes: No Distress Eyes: Yes: Conjunctiva Clear Cardiovascular: Yes: Regular Rate and Rhythm, S1, S2 Respiratory: Yes: CTA Bilaterally Gastrointestinal: Yes: Normal Bowel Sounds, Soft. No: Tenderness Extremities: Yes: Other (decreased L foot swelling. + Erythema, fluctuant swelling, dorsum great toe) Labs: CBC, BMP 06/10/18 07:15 06/10/18 07:15 Assessment/Plan Cellulitis/ ? soft tissue abscess/ osteomyelitis L great toe IDDM Hx gout MRI ordered Continue vancomycin/ zosyn empirically Podiatry follow up
--- NOTE | 2018-06-11 11:43 | PN ---
Physical Exam: SUBJECTIVE: Patient seen and examined oob to chair. OBJECTIVE: Vital Signs Period Temp Pulse Resp BP Sys/Delgado Pulse Ox Last 24 Hr 98.0 F-99.8 F 77-79 18-20 125-140/55-79 94-94 GENERAL: The patient is awake, alert, and fully oriented, in no acute distress. LUNGS: CTA HEART: Regular rate and rhythm, S1, S2 ABDOMEN: Soft, nontender, nondistended LEFT LE: great toe is swollen, erythemous, peeling skin, dry Laboratory Results - last 24 hr 06/10/18 06/11/18 06/11/18 21:37 07:32 07:32 ESR 106 H POC Glucometer 152 Hemoglobin A1c % Uric Acid 2.9 C-Reactive Protein 23.8 H 06/11/18 07:32 ESR POC Glucometer Hemoglobin A1c % 7.3 H Uric Acid C-Reactive Protein Active Medications Generic Name Dose Route Start Last Admin Trade Name Freq PRN Reason Stop Dose Admin Allopurinol 300 mg 06/11/18 10:00 06/11/18 09:51 Zyloprim - PO 300 mg DAILY KEVEN Administration Amlodipine Besylate 5 mg 06/11/18 10:00 06/11/18 09:48 Norvasc - PO 5 mg DAILY KEVEN Administration Aspirin 81 mg 06/10/18 14:45 06/11/18 09:47 Asa - PO 81 mg DAILY KEVEN Administration Atorvastatin Calcium 40 mg 06/10/18 22:00 06/10/18 21:39 Lipitor - PO 40 mg HS KEVEN Administration Clopidogrel Bisulfate 75 mg 06/10/18 14:45 06/11/18 09:51 Plavix - PO 75 mg DAILY KEVEN Administration Fluoxetine HCl 40 mg 06/11/18 10:00 06/11/18 09:47 Prozac - PO 40 mg DAILY KEVEN Administration Heparin Sodium (Porcine) 5,000 unit 06/10/18 10:00 06/11/18 09:49 Heparin - SQ 5,000 unit BID KEVEN Administration Vancomycin HCl 1,000 mg in 250 mls @ 166.667 mls/hr 06/10/18 10:00 06/11/18 09:46 Vancomycin (Pre-Docked) IVPB 166.667 mls/hr Q12H KEVEN Administration Protocol Piperacillin Sod/Tazobactam Sod 3.375 gm in 50 mls @ 100 mls/hr 06/10/18 10: 00 06/11/18 09:47 Zosyn 3.375gm Ivpb (Pre-Docked) IVPB 100 mls/hr Q8H-IV KEVEN Administration Protocol Insulin Detemir 10 units 06/10/18 22:00 06/10/18 21:54 Levemir Vial SQ 10 units HS KEVEN Administration Metoprolol Succinate 12.5 mg 06/10/18 14:45 06/11/18 09:47 Toprol Xl - PO 12.5 mg DAILY KEVEN Administration Morphine Sulfate 2 mg 06/10/18 03:11 06/10/18 07:53 Morphine Injection - IVPUSH 2 mg Q6H PRN Administration PAIN LEVEL 7 - 10 Non-Formulary Medication 10 ml 06/11/18 10:00 06/11/18 09:50 Loteprednol Etabonate [Lotemax] OD Not Given DAILY KEVEN Non-Formulary Medication 20 mg 06/10/18 14:37 Methylphenidate Hcl [Methylphenidate Hcl] PO ASDIR PRN HYPERACTIVITY Ropinirole HCl 3 mg 06/10/18 14:37 Requip - PO TID PRN RESTLESS LEG SYNDROME Microbiology 06/09/18 21:40 Urine - Urine Clean Catch Urine Culture - Final NO GROWTH OBTAINED 06/09/18 20:40 Blood - Peripheral Venous Blood Culture - Preliminary NO GROWTH OBTAINED AFTER 24 HOURS, INCUBATION TO CONTINUE FOR 4 DAYS. 06/09/18 20:40 Blood - Peripheral Venous Blood Culture - Preliminary NO GROWTH OBTAINED AFTER 24 HOURS, INCUBATION TO CONTINUE FOR 4 DAYS. ASSESSMENT/PLAN 72 year-old male with a PMH significant for HTN, CAD s/p stent, IDDM, lung cancer (treated),and gout. Admitted for left great toe cellulitis and osteomyelitis. Left great toe cellulitis and osteomyelitis --06/09 CT: bone destruction first distal phalanx with small adjacent bone fragments, significant swelling consistent with infection v. osteo --06/10 MRI: +osteo --continue empiric Vanc and Zosyn --esr 106, crp 23.8 --will need PICC and long-term antibiotics --ID following --podiatry following Gout --uric acid wnl --continue allopurinol Elevated creatinine --Cr 1.6 on admission, 1.5 --hold home Losartan IDDM --Levemir --Novolog sliding scale coverage --HgbA1C 7.3 Coronary artery disease --continue ASA, Plavix, metoprolol Hypertension --continue metoprolol, amlodipine; hold losartan due to elevated Cr Restless leg syndrome --continue ropirinole Depression --continue fluoxetine FEN Fluids: PO intake adequate Electrolytes: replete as indicated Nutrition: diabetic low sodium DVT prophylaxis: subq heparin, oob, ambulation Dispo: continues to require inpatient care. Full code. Visit type - Emergency Visit Emergency Visit: Yes ED Registration Date: 06/09/18 Care time: The patient presented to the Emergency Department on the above date and was hospitalized for further evaluation of their emergent condition. - New Patient This patient is new to me today: No - Critical Care Critical Care patient: No
--- NOTE | 2018-06-11 20:52 | PN ---
Progress Note (short form) - Note Progress Note: FUV left foot. States he feels better. vss, Tmax 99.3 +cellulitis left big toe demarcating to distal tip, +grade 1 wound sub left big toe, mri + for om, uric acid wnl, wbc=9.7,enac2j=9.3, tsj=650, +mild fluctuance , -drainage, -abscess on MRI om cellulitis Continue IVABX. Possible I&D if no improvement on schedule for Saturday. Will re-evaluate tomorrow. Might consider bedside aspiration instead of OR debridement. HBO consult. ID on case. will follow.
[2018-06-11] MEDS: INSULIN (LEVEMIR) 100 UNITS/ML UNITS SQ SCH (21:40)
[2018-06-11] MEDS: ATORVASTATIN CA 40 MG TABLET (FP) PO SCH (21:40)
[2018-06-11] MEDS: morphine CARPU-JECT 2 MG/1 ML DISP.SYRIN IVPUSH PRN (22:34)
[2018-06-12] MEDS: PIPERACILLIN/TAZOB 3.375 GM 3.375 GM/50 ML BAG IVPB SCH ×3 (01:08→18:07)
[2018-06-12] MEDS: HEPARIN NA (PORCINE) 5,000 UNITS/ML 1ML VIAL SQ SCH ×2 (10:36→21:26)
[2018-06-12] MEDS: FLUoxetine HCL 20 MG CAPSULE (FP) PO SCH (10:45)
[2018-06-12] MEDS: ASPIRIN 81 MG CHEWABLE TABLETS PO SCH (10:45)
[2018-06-12] MEDS: ALLOPURINOL 300 MG TABLET (FP) PO SCH (10:46)
[2018-06-12] MEDS: metoPROLOL SUCCINATE 25 MG TAB.SR.24H (FP) PO SCH (10:46)
[2018-06-12] MEDS: LOTEPREDNOL ETABONATE OD SCH (10:47)
[2018-06-12] MEDS: CLOPIDOGREL BISULFATE 75 MG TABLET (FP) PO SCH (10:47)
[2018-06-12] MEDS: amLODIPine BESYLATE 5 MG TABLET (FP) PO SCH (10:47)
[2018-06-12] MEDS: VANCOMYCIN 1 GRAM (PRE-DOCKED) 1,000 MG/250 ML BAG IVPB SCH (15:12)
--- NOTE | 2018-06-12 16:47 | PN ---
Physical Exam: SUBJECTIVE: Patient seen and examined OBJECTIVE: Vital Signs Period Temp Pulse Resp BP Sys/Delgado Pulse Ox Last 24 Hr 98.6 F-99.7 F 64-78 18-20 120-136/49-66 96-99 GENERAL: The patient is awake, alert, and fully oriented, in no acute distress. LUNGS: CTA HEART: Regular rate and rhythm, S1, S2 ABDOMEN: Soft, nontender, nondistended LEFT LE: great toe is swollen, erythemous, peeling skin, dry Laboratory Results - last 24 hr 06/11/18 06/12/18 21:31 08:48 POC Glucometer 232 Vancomycin Pre-Dose 15.66 H* Active Medications Generic Name Dose Route Start Last Admin Trade Name Freq PRN Reason Stop Dose Admin Allopurinol 300 mg 06/11/18 10:00 06/12/18 10:46 Zyloprim - PO 300 mg DAILY KEVEN Administration Amlodipine Besylate 5 mg 06/11/18 10:00 06/12/18 10:47 Norvasc - PO 5 mg DAILY KEVEN Administration Aspirin 81 mg 06/10/18 14:45 06/12/18 10:45 Asa - PO 81 mg DAILY KEVEN Administration Atorvastatin Calcium 40 mg 06/10/18 22:00 06/11/18 21:40 Lipitor - PO 40 mg HS KEVEN Administration Clopidogrel Bisulfate 75 mg 06/10/18 14:45 06/12/18 10:47 Plavix - PO 75 mg DAILY KEVEN Administration Fluoxetine HCl 40 mg 06/11/18 10:00 06/12/18 10:45 Prozac - PO 40 mg DAILY KEVEN Administration Heparin Sodium (Porcine) 5,000 unit 06/10/18 10:00 06/12/18 10:36 Heparin - SQ 5,000 unit BID KEVEN Administration Vancomycin HCl 1,000 mg in 250 mls @ 166.667 mls/hr 06/10/18 10:00 06/12/18 15:12 Vancomycin (Pre-Docked) IVPB Not Given Q12H KEVEN Protocol Piperacillin Sod/Tazobactam Sod 3.375 gm in 50 mls @ 100 mls/hr 06/10/18 10: 00 06/12/18 10:47 Zosyn 3.375gm Ivpb (Pre-Docked) IVPB 100 mls/hr Q8H-IV KEVEN Administration Protocol Insulin Detemir 10 units 06/10/18 22:00 06/11/18 21:40 Levemir Vial SQ 10 units HS KEVEN Administration Metoprolol Succinate 12.5 mg 06/10/18 14:45 06/12/18 10:46 Toprol Xl - PO 12.5 mg DAILY KEVEN Administration Non-Formulary Medication 10 ml 06/11/18 10:00 06/12/18 10:47 Loteprednol Etabonate [Lotemax] OD Not Given DAILY KEVEN Non-Formulary Medication 20 mg 06/10/18 14:37 Methylphenidate Hcl [Methylphenidate Hcl] PO ASDIR PRN HYPERACTIVITY Ropinirole HCl 3 mg 06/10/18 14:37 Requip - PO TID PRN RESTLESS LEG SYNDROME ASSESSMENT/PLAN Microbiology 06/09/18 21:40 Urine - Urine Clean Catch Urine Culture - Final NO GROWTH OBTAINED 06/09/18 20:40 Blood - Peripheral Venous Blood Culture - Preliminary NO GROWTH OBTAINED AFTER 24 HOURS, INCUBATION TO CONTINUE FOR 4 DAYS. 06/09/18 20:40 Blood - Peripheral Venous Blood Culture - Preliminary NO GROWTH OBTAINED AFTER 24 HOURS, INCUBATION TO CONTINUE FOR 4 DAYS. ASSESSMENT/PLAN 72 year-old male with a PMH significant for HTN, CAD s/p stent, IDDM, lung cancer (treated),and gout. Admitted for left great toe cellulitis and osteomyelitis. Left great toe cellulitis and osteomyelitis --06/09 CT: bone destruction first distal phalanx with small adjacent bone fragments, significant swelling consistent with infection v. osteo --06/10 MRI: +osteo --continue empiric Vanc and Zosyn; vanc trough elevated, check in am --esr 106, crp 23.8 --will need PICC and long-term antibiotics --Dr. Stone aspirated fluid/pus, sent for culture Gout --uric acid wnl --continue allopurinol Elevated creatinine --Cr 1.6 on admission, 1.5 --hold home Losartan --cmp in am IDDM --Levemir --Novolog sliding scale coverage --HgbA1C 7.3 Coronary artery disease --continue ASA, Plavix, metoprolol Hypertension --continue metoprolol, amlodipine; hold losartan due to elevated Cr Restless leg syndrome --continue ropirinole Depression --continue fluoxetine FEN Fluids: PO intake adequate Electrolytes: replete as indicated Nutrition: diabetic low sodium DVT prophylaxis: subq heparin, oob, ambulation Dispo: continues to require inpatient care. Full code. Visit type - Emergency Visit Emergency Visit: Yes ED Registration Date: 06/09/18 Care time: The patient presented to the Emergency Department on the above date and was hospitalized for further evaluation of their emergent condition. - New Patient This patient is new to me today: No - Critical Care Critical Care patient: No
[2018-06-12] MEDS: ATORVASTATIN CA 40 MG TABLET (FP) PO SCH (21:26)
[2018-06-12] MEDS: INSULIN (LEVEMIR) 100 UNITS/ML UNITS SQ SCH (21:27)
[2018-06-13] MEDS: PIPERACILLIN/TAZOB 3.375 GM 3.375 GM/50 ML BAG IVPB SCH ×3 (01:05→18:05)
[2018-06-13 08:19] LABS: BASO % 0.7 % (0-2.0); EOS % 0.6 % (0-4.5); HEMATOCRIT 37.5 % (35.4-49); HEMOGLOBIN 12.4 GM/dl (11.7-16.9); LYMPH % 6.2 % (8-40); MCH 31.4 pg (25.7-33.7); MCHC 33.1 g/dl (32.0-35.9); MEAN CELL VOLUME 94.8 fl (80-96); MEAN PLT VOLUME 8.1 fl (7.5-11.1); MONO % 8.3 % (3.8-10.2); NEUT % 84.2 % (42.8-82.8); PLATELET COUNT 353 K/MM3 (134-434); RBC 3.96 M/mm3 (4.00-5.60); RDW 13.1 % (11.9-15.9); WHITE BLOOD COUNT 8.8 K/mm3 (4.0-10.8)
[2018-06-13 08:33] LABS: ALBUMIN 2.4 g/dl (3.5-5.0); ALK PHOS 119 U/L (32-92); ANION GAP 6 MMOL/L (8-16); BILIRUBIN,TOTAL 1.2 mg/dl (0.2-1.0); BLOOD UREA NITROGEN 29 mg/dl (7-18); CALCIUM 8.6 mg/dl (8.4-10.2); CHLORIDE 102 mmol/L (98-107); CO2 26 mmol/L (22-28); CREATININE 1.5 mg/dl (0.6-1.3); GLUCOSE,RANDOM 88 mg/dl (74-106); MAGNESIUM 1.9 mg/dL (1.8-2.4); POTASSIUM 4.6 mmol/L (3.5-5.1); SGOT/AST 45 U/L (10-42); SGPT/ALT 50 U/L (10-40); SODIUM 134 mmol/L (136-145); TOT PROT 5.8 g/dl (6.4-8.3)
--- NOTE | 2018-06-13 09:33 | PN ---
Progress Note, Physician History of Present Illness: Awake, alert S/P bedside aspiration of great toe Low grade temp WBC WNL Cultures pending - Current Medication List Current Medications: Active Medications Allopurinol (Zyloprim -) 300 mg PO DAILY [facility] Last Admin: 06/12/18 10:46 Dose: 300 mg Amlodipine Besylate (Norvasc -) 5 mg PO DAILY [facility] Last Admin: 06/12/18 10:47 Dose: 5 mg Aspirin (Asa -) 81 mg PO DAILY [facility] Last Admin: 06/12/18 10:45 Dose: 81 mg Atorvastatin Calcium (Lipitor -) 40 mg PO HS [facility] Last Admin: 06/12/18 21:26 Dose: 40 mg Clopidogrel Bisulfate (Plavix -) 75 mg PO DAILY [facility] Last Admin: 06/12/18 10:47 Dose: 75 mg Fluoxetine HCl (Prozac -) 40 mg PO DAILY [facility] Last Admin: 06/12/18 10:45 Dose: 40 mg Heparin Sodium (Porcine) (Heparin -) 5,000 unit SQ BID [facility] Last Admin: 06/12/18 21:26 Dose: 5,000 unit Vancomycin HCl (Vancomycin (Pre-Docked)) 1,000 mg in 250 mls @ 166.667 mls/hr IVPB Q12H [facility]; Protocol Last Admin: 06/12/18 15:12 Dose: Not Given Piperacillin Sod/Tazobactam Sod (Zosyn 3.375gm Ivpb (Pre-Docked)) 3.375 gm in 50 mls @ 100 mls/hr IVPB Q8H-IV [facility]; Protocol Last Admin: 06/13/18 01:05 Dose: 100 mls/hr Insulin Detemir (Levemir Vial) 10 units SQ HS [facility] Last Admin: 06/12/18 21:27 Dose: 10 units Metoprolol Succinate (Toprol Xl -) 12.5 mg PO DAILY [facility] Last Admin: 06/12/18 10:46 Dose: 12.5 mg Non-Formulary Medication (Loteprednol Etabonate [Lotemax]) 10 ml OD DAILY [facility] Last Admin: 06/12/18 10:47 Dose: Not Given Non-Formulary Medication (Methylphenidate Hcl [Methylphenidate Hcl]) 20 mg PO ASDIR PRN PRN Reason: HYPERACTIVITY Ropinirole HCl (Requip -) 3 mg PO TID PRN PRN Reason: RESTLESS LEG SYNDROME - Objective Vital Signs: Vital Signs Temperature 98.8 F 06/13/18 07:06 Pulse Rate 66 06/13/18 07:06 Respiratory Rate 18 06/13/18 07:06 Blood Pressure 120/66 06/13/18 07:06 O2 Sat by Pulse Oximetry (%) 92 L 06/13/18 07:06 Constitutional: Yes: No Distress Eyes: Yes: Conjunctiva Clear Cardiovascular: Yes: Regular Rate and Rhythm, S1, S2 Respiratory: Yes: CTA Bilaterally Gastrointestinal: Yes: Normal Bowel Sounds, Soft. No: Tenderness Extremities: Yes: Other (decreased L LE swelling. L great toe remains swollen/ erythematous) Labs: CBC, BMP 06/13/18 08:00 06/13/18 08:00 Assessment/Plan Cellulitis/ osteomyelitis L great toe IDDM Hx gout Await c/s Continue vancomycin/ zosyn empirically
[2018-06-13] MEDS: metoPROLOL SUCCINATE 25 MG TAB.SR.24H (FP) PO SCH (09:47)
[2018-06-13] MEDS: FLUoxetine HCL 20 MG CAPSULE (FP) PO SCH (09:47)
[2018-06-13] MEDS: CLOPIDOGREL BISULFATE 75 MG TABLET (FP) PO SCH (09:47)
[2018-06-13] MEDS: ALLOPURINOL 300 MG TABLET (FP) PO SCH (09:48)
[2018-06-13] MEDS: amLODIPine BESYLATE 5 MG TABLET (FP) PO SCH (09:48)
[2018-06-13] MEDS: ASPIRIN 81 MG CHEWABLE TABLETS PO SCH (09:48)
[2018-06-13] MEDS: HEPARIN NA (PORCINE) 5,000 UNITS/ML 1ML VIAL SQ SCH ×2 (09:48→21:26)
--- NOTE | 2018-06-13 11:54 | OP ---
Operative Note - Note: Operative Date: 06/12/18 Pre-Operative Diagnosis: cellulitis abscess left great toe Operation: I&D aspiration of abscess bedside. Findings: Purulent drainage. Post-Operative Diagnosis: Same as Pre-op Surgeon: Palak Stone Specimens Removed: pus Estimated Blood Loss (mls): 5 Instrument used (Debridements only): 18g needle Operative Report Dictated: No
--- NOTE | 2018-06-13 12:05 | PN ---
Progress Note (short form) - Note Progress Note: FUV left foot. States he feels better. No pain. POD#1 vss, Tmax 98.8 +resolving cellulitis left big toe , +grade 0 wound sub left big toe, mri + for om, uric acid wnl, wbc=8.8, chps9p=3.3, fqm=130, -fluctuance, -drainage, om resolving cellulitis Continue IVABX. HBO consult done by Leann according to patient today. Can be dc from POdiatry standpoint. Awaiting culture results for IVABX at home. Will follow till dc. Post op shoe left.
--- NOTE | 2018-06-13 12:36 | PN ---
Physical Exam: SUBJECTIVE: Patient seen and examined at bedside. OBJECTIVE: Vital Signs Period Temp Pulse Resp BP Sys/Delgado Pulse Ox Last 24 Hr 98.6 F-99.1 F 64-71 18-18 120-144/55-66 92-99 GENERAL: The patient is awake, alert, and fully oriented, in no acute distress. LUNGS: CTA HEART: Regular rate and rhythm, S1, S2 ABDOMEN: Soft, nontender, nondistended LEFT LE: hallux swelling and erythema much improved following I&D yesterday; no drainage Laboratory Results - last 24 hr 06/12/18 06/13/18 06/13/18 21:21 08:00 08:00 WBC 8.8 RBC 3.96 L Hgb 12.4 Hct 37.5 MCV 94.8 MCH 31.4 MCHC 33.1 RDW 13.1 Plt Count 353 MPV 8.1 Absolute Neuts (auto) 7.4 Neutrophils % 84.2 H Lymphocytes % 6.2 L Monocytes % 8.3 Eosinophils % 0.6 D Basophils % 0.7 Sodium Potassium Chloride Carbon Dioxide Anion Gap BUN Creatinine Creat Clearance w eGFR POC Glucometer 278 Random Glucose Calcium Magnesium Total Bilirubin AST ALT Alkaline Phosphatase Total Protein Albumin Vancomycin Pre-Dose 8.15 D 06/13/18 08:00 WBC RBC Hgb Hct MCV MCH MCHC RDW Plt Count MPV Absolute Neuts (auto) Neutrophils % Lymphocytes % Monocytes % Eosinophils % Basophils % Sodium 134 L Potassium 4.6 Chloride 102 Carbon Dioxide 26 Anion Gap 6 L BUN 29 H Creatinine 1.5 H Creat Clearance w eGFR 46.13 POC Glucometer Random Glucose 88 Calcium 8.6 Magnesium 1.9 Total Bilirubin 1.2 H AST 45 H D ALT 50 H D Alkaline Phosphatase 119 H Total Protein 5.8 L Albumin 2.4 L Vancomycin Pre-Dose Active Medications Generic Name Dose Route Start Last Admin Trade Name Freq PRN Reason Stop Dose Admin Allopurinol 300 mg 06/11/18 10:00 06/13/18 09:48 Zyloprim - PO 300 mg DAILY [facility] Administration Amlodipine Besylate 5 mg 06/11/18 10:00 06/13/18 09:48 Norvasc - PO 5 mg DAILY [facility] Administration Aspirin 81 mg 06/10/18 14:45 06/13/18 09:48 Asa - PO 81 mg DAILY [facility] Administration Atorvastatin Calcium 40 mg 06/10/18 22:00 06/12/18 21:26 Lipitor - PO 40 mg HS KEVEN Administration Clopidogrel Bisulfate 75 mg 06/10/18 14:45 06/13/18 09:47 Plavix - PO 75 mg DAILY [facility] Administration Fluoxetine HCl 40 mg 06/11/18 10:00 06/13/18 09:47 Prozac - PO 40 mg DAILY [facility] Administration Heparin Sodium (Porcine) 5,000 unit 06/10/18 10:00 06/13/18 09:48 Heparin - SQ 5,000 unit BID K[facility] Administration Vancomycin HCl 1,000 mg in 250 mls @ 166.667 mls/hr 06/10/18 10:00 06/12/18 15:12 Vancomycin (Pre-Docked) IVPB Not Given Q12H [facility] Protocol Piperacillin Sod/Tazobactam Sod 3.375 gm in 50 mls @ 100 mls/hr 06/10/18 10: 00 06/13/18 09:47 Zosyn 3.375gm Ivpb (Pre-Docked) IVPB 100 mls/hr Q8H-IV [facility] Administration Protocol Insulin Detemir 10 units 06/10/18 22:00 06/12/18 21:27 Levemir Vial SQ 10 units HS [facility] Administration Metoprolol Succinate 12.5 mg 06/10/18 14:45 06/13/18 09:47 Toprol Xl - PO 12.5 mg DAILY K[facility] Administration Non-Formulary Medication 10 ml 06/11/18 10:00 06/12/18 10:47 Loteprednol Etabonate [Lotemax] OD Not Given DAILY [facility] Non-Formulary Medication 20 mg 06/10/18 14:37 Methylphenidate Hcl [Methylphenidate Hcl] PO ASDIR PRN HYPERACTIVITY Ropinirole HCl 3 mg 06/10/18 14:37 Requip - PO TID PRN RESTLESS LEG SYNDROME Imaging --06/09 CT: bone destruction first distal phalanx with small adjacent bone fragments, significant swelling consistent with infection v. osteo --06/10 MRI: +osteo ASSESSMENT/PLAN 72 year-old male with a PMH significant for HTN, CAD s/p stent, IDDM, lung cancer (treated),and gout. Admitted for left great toe cellulitis and osteomyelitis. Left great toe cellulitis and osteomyelitis --s/p I&D by Dr. Stepanian yesterday, hallux swelling and erythema much improved today --will need PICC and long-term antibiotics, continue empiric Vanc and Zosyn until culture back --will need [facility]up at [facility] and arrangements are being made for hyperbaric therapy Gout --uric acid wnl --continue allopurinol Elevated creatinine --Cr 1.6 on admission, 1.5 --hold home Losartan IDDM --Levemir --Novolog sliding scale coverage --HgbA1C 7.3 Coronary artery disease --continue ASA, Plavix, metoprolol Hypertension --continue metoprolol, amlodipine; hold losartan due to elevated Cr Restless leg syndrome --continue ropirinole Depression --continue fluoxetine FEN Fluids: PO intake adequate Electrolytes: replete as indicated Nutrition: diabetic low sodium DVT prophylaxis: subq heparin, oob, ambulation Dispo: continues to require inpatient care. Full code. Visit type - Emergency Visit Emergency Visit: Yes ED Registration Date: 06/09/18 Care time: The patient presented to the Emergency Department on the above date and was hospitalized for further evaluation of their emergent condition. - New Patient This patient is new to me today: No - Critical Care Critical Care patient: No
[2018-06-13] MEDS: ACETAMINOPHEN 325 MG TABLET (FP) PO PRN (20:50)
[2018-06-13] MEDS: oxyCODONE HCL 5 MG TABLET PO PRN (20:51)
[2018-06-13] MEDS: ATORVASTATIN CA 40 MG TABLET (FP) PO SCH (21:26)
[2018-06-13] MEDS: INSULIN (LEVEMIR) 100 UNITS/ML UNITS SQ SCH (21:27)
[2018-06-13] MEDS: VANCOMYCIN 1 GRAM (PRE-DOCKED) 1,000 MG/250 ML BAG IVPB SCH (21:29)
[2018-06-14] MEDS: PIPERACILLIN/TAZOB 3.375 GM 3.375 GM/50 ML BAG IVPB SCH ×3 (02:03→18:28)
[2018-06-14] MEDS: oxyCODONE HCL 5 MG TABLET PO PRN ×2 (02:06→19:44)
[2018-06-14] MEDS: ACETAMINOPHEN 325 MG TABLET (FP) PO PRN ×2 (02:06→19:44)
[2018-06-14 09:00] LABS: ANION GAP 5 MMOL/L (8-16); BLOOD UREA NITROGEN 30 mg/dl (7-18); CALCIUM 8.7 mg/dl (8.4-10.2); CHLORIDE 101 mmol/L (98-107); CO2 29 mmol/L (22-28); CREATININE 1.5 mg/dl (0.6-1.3); GLUCOSE,RANDOM 122 mg/dl (74-106); POTASSIUM 4.2 mmol/L (3.5-5.1); SODIUM 135 mmol/L (136-145)
--- NOTE | 2018-06-14 09:09 | PN ---
Physical Exam: SUBJECTIVE: Patient seen and examined, Pt reports Left foot pain improved, denies cp, sob, palpitations abdominal pain , N/V/D or urinary symptoms. OBJECTIVE: Vital Signs Period Temp Pulse Resp BP Sys/Delgado Pulse Ox Last 24 Hr 97.4 F-98.3 F 56-66 17-18 117-131/56-72 93-96 GENERAL: The patient is awake, alert, and fully oriented, in no acute distress. HEAD: Normal with no signs of trauma. EYES: PERRL, extraocular movements intact, sclera anicteric, conjunctiva clear. No ptosis. ENT: Ears normal, nares patent, oropharynx clear without exudates, moist mucous membranes. NECK: Trachea midline, full range of motion, supple. LUNGS: Breath sounds equal, clear to auscultation bilaterally, no wheezes, no crackles, no accessory muscle use. HEART: Regular rate and rhythm, S1, S2 without murmur, rub or gallop. ABDOMEN: Soft, nontender, nondistended, normoactive bowel sounds, no guarding, no rebound, no hepatosplenomegaly, no masses. EXTREMITIES: 2+ pulses, warm, well-perfused, no edema. NEUROLOGICAL: Cranial nerves II through XII grossly intact. Normal speech, gait not observed. PSYCH: Normal mood, normal affect. SKIN: Warm, dry, normal turgor, no rashes, left hallux with swelling and mild erythema, no drainage noted, left lateral malleolus wound with small amount serosanguineous drainage. Laboratory Results - last 24 hr 06/13/18 06/13/18 08:00 21:32 POC Glucometer 244 Vancomycin Pre-Dose 8.15 D Active Medications Generic Name Dose Route Start Last Admin Trade Name Freq PRN Reason Stop Dose Admin Acetaminophen 650 mg 06/13/18 20:32 06/14/18 02:06 Tylenol - PO 650 mg Q6H PRN Administration PAIN LEVEL 6-10 Allopurinol 300 mg 06/11/18 10:00 06/13/18 09:48 Zyloprim - PO 300 mg DAILY [facility]EV[facility] Administration Amlodipine Besylate 5 mg 06/11/18 10:00 06/13/18 09:48 Norvasc - PO 5 mg DAILY [facility] Administration Aspirin 81 mg 06/10/18 14:45 06/13/18 09:48 Asa - PO 81 mg DAILY K[facility] Administration Atorvastatin Calcium 40 mg 06/10/18 22:00 06/13/18 21:26 Lipitor - PO 40 mg HS KEVEN Administration Clopidogrel Bisulfate 75 mg 06/10/18 14:45 06/13/18 09:47 Plavix - PO 75 mg DAILY K[facility] Administration Fluoxetine HCl 40 mg 06/11/18 10:00 06/13/18 09:47 Prozac - PO 40 mg DAILY KEVEN Administration Heparin Sodium (Porcine) 5,000 unit 06/10/18 10:00 06/13/18 21:26 Heparin - SQ 5,000 unit BID KEVEN Administration Vancomycin HCl 1,000 mg in 250 mls @ 166.667 mls/hr 06/10/18 10:00 06/13/18 21:29 Vancomycin (Pre-Docked) IVPB 166.667 mls/hr Q12H [facility] Administration Protocol Piperacillin Sod/Tazobactam Sod 3.375 gm in 50 mls @ 100 mls/hr 06/10/18 10: 00 06/14/18 02:03 Zosyn 3.375gm Ivpb (Pre-Docked) IVPB 100 mls/hr Q8H-IV [facility] Administration Protocol Insulin Detemir 10 units 06/10/18 22:00 06/13/18 21:27 Levemir Vial SQ 10 units HS KEVEN Administration Metoprolol Succinate 12.5 mg 06/10/18 14:45 06/13/18 09:47 Toprol Xl - PO 12.5 mg DAILY KEVEN Administration Non-Formulary Medication 10 ml 06/11/18 10:00 06/12/18 10:47 Loteprednol Etabonate [Lotemax] OD Not Given DAILY [facility] Non-Formulary Medication 20 mg 06/10/18 14:37 Methylphenidate Hcl [Methylphenidate Hcl] PO ASDIR PRN HYPERACTIVITY Oxycodone HCl 5 mg 06/13/18 20:31 06/14/18 02:06 Roxicodone - PO 5 mg Q6H PRN Administration PAIN LEVEL 6 - 10 Ropinirole HCl 3 mg 06/10/18 14:37 Requip - PO TID PRN RESTLESS LEG SYNDROME Imaging --06/09 CT: bone destruction first distal phalanx with small adjacent bone fragments, significant swelling consistent with infection v. osteo --06/10 MRI: +osteo ASSESSMENT/PLAN 72 year-old male with a PMH significant for HTN, CAD s/p stent, IDDM, lung cancer (treated),and gout. Admitted for left great toe cellulitis and osteomyelitis. *Left great toe cellulitis and osteomyelitis -s/p I&D by Dr. Stone, hallux swelling and erythema much improved today - wound culture pending - BC preliminary no growth - will cont on Vanco/Zosyn - afebrile with no leukocytosis - abnormal ESR -will need PICC and long-term antibiotics, continue empiric Vanc and Zosyn until culture back -will need followup at [facility] and arrangements are being made for hyperbaric therapy * Hx of Gout -uric acid wnl -continue allopurinol * DEISY- unknown baseline -Cr 1.6 on admission, 1.5 -will continue to hold home Losartan - will get renal US *IDDM-BS >200 - Hgb 7.3 -will cont on Levemir and Novolog sliding scale coverage - FS monitoring and consistent carb diet *Coronary artery disease -continue ASA, Plavix, metoprolol *Hypertension- BP stable -continue metoprolol, amlodipine; hold losartan due to elevated Cr *Restless leg syndrome -continue ropirinole *Depression -continue fluoxetine * Abnormal LFT's- asymptomatic - will repeat labs *FEN Fluids: PO intake adequate Electrolytes: replete as indicated Nutrition: diabetic low sodium DVT prophylaxis: subq heparin, oob, ambulation Dispo: continues to require inpatient care. Full code. Visit type - Emergency Visit Emergency Visit: Yes ED Registration Date: 06/09/18 Care time: The patient presented to the Emergency Department on the above date and was hospitalized for further evaluation of their emergent condition. - New Patient This patient is new to me today: Yes Date on this admission: 06/14/18 - Critical Care Critical Care patient: No
[2018-06-14] MEDS: VANCOMYCIN 1 GRAM (PRE-DOCKED) 1,000 MG/250 ML BAG IVPB SCH (09:21)
[2018-06-14] MEDS: metoPROLOL SUCCINATE 25 MG TAB.SR.24H (FP) PO SCH (09:22)
[2018-06-14] MEDS: FLUoxetine HCL 20 MG CAPSULE (FP) PO SCH (09:22)
[2018-06-14] MEDS: ALLOPURINOL 300 MG TABLET (FP) PO SCH (09:23)
[2018-06-14] MEDS: HEPARIN NA (PORCINE) 5,000 UNITS/ML 1ML VIAL SQ SCH ×2 (09:23→22:08)
[2018-06-14] MEDS: amLODIPine BESYLATE 5 MG TABLET (FP) PO SCH (09:23)
[2018-06-14] MEDS: CLOPIDOGREL BISULFATE 75 MG TABLET (FP) PO SCH (09:23)
[2018-06-14] MEDS: LOTEPREDNOL ETABONATE OD SCH (09:24)
[2018-06-14] MEDS: ASPIRIN 81 MG CHEWABLE TABLETS PO SCH (09:24)
[2018-06-14 11:59] LABS: ALBUMIN 2.3 g/dl (3.5-5.0); ALK PHOS 121 U/L (32-92); BILIRUBIN,TOTAL 0.9 mg/dl (0.2-1.0); SGOT/AST 40 U/L (10-42); SGPT/ALT 55 U/L (10-40); TOT PROT 5.8 g/dl (6.4-8.3)
[2018-06-14 12:04] LABS: BILIRUBIN,DIRECT < 0.2 mg/dL (0.0-0.3)
[2018-06-14] MEDS: LACTOBACILLUS ACIDOPHILUS 1 TABLET PO SCH (14:30)
[2018-06-14] MEDS: ATORVASTATIN CA 40 MG TABLET (FP) PO SCH (22:08)
[2018-06-14] MEDS: INSULIN (LEVEMIR) 100 UNITS/ML UNITS SQ SCH (22:11)
[2018-06-14] MEDS ORDERED: INSULIN (NOVOLOG) ASPART 100 UNITS/ML 10ML VIAL ONE (22:20)
[2018-06-14] MEDS: INSULIN SLIDING SCALE (NOVOLOG) 1 VIAL SQ SCH (22:22)
[2018-06-15] MEDS: oxyCODONE HCL 5 MG TABLET PO PRN (01:51)
[2018-06-15] MEDS: ACETAMINOPHEN 325 MG TABLET (FP) PO PRN (01:51)
[2018-06-15] MEDS: PIPERACILLIN/TAZOB 3.375 GM 3.375 GM/50 ML BAG IVPB SCH ×3 (01:52→17:36)
[2018-06-15] MEDS: INSULIN SLIDING SCALE (NOVOLOG) 1 VIAL SQ SCH ×4 (06:35→21:21)
--- NOTE | 2018-06-15 08:40 | PN ---
Physical Exam: SUBJECTIVE: Patient seen and examined at the bedside. Denies pain. reports constipation. OBJECTIVE: pt will likely need tunneled cath prior to d/c Vital Signs Period Temp Pulse Resp BP Sys/Delgado Pulse Ox Last 24 Hr 97.7 F-98.4 F 46-64 18-18 116-132/56-62 94-96 GENERAL: The patient is awake, alert, and fully oriented, in no acute distress, disheveled HEAD: Normal with no signs of trauma. EYES: PERRL, extraocular movements intact, sclera anicteric, conjunctiva clear. No ptosis. ENT: Ears normal, nares patent, oropharynx clear without exudates, moist mucous membranes. NECK: Trachea midline, full range of motion, supple. LUNGS: Breath sounds equal, left lung diminished, right lung clear HEART: Regular rate and rhythm, ABDOMEN: Soft, nontender, nondistended, normoactive bowel sounds NEUROLOGICAL: Normal speech, gait steady PSYCH: Normal mood, normal affect. SKIN: cellulitis of left great toe, wrapped.wound changed this a.m. by RN. dressing intact. Laboratory Results - last 24 hr 06/14/18 06/14/18 06/14/18 07:28 07:28 07:28 Sodium 135 L Potassium 4.2 Chloride 101 Carbon Dioxide 29 H Anion Gap 5 L BUN 30 H Creatinine 1.5 H Creat Clearance w eGFR 46.13 POC Glucometer Random Glucose 122 H D Calcium 8.7 Magnesium 2.0 Total Bilirubin 0.9 Direct Bilirubin < 0.2 AST 40 ALT 55 H Alkaline Phosphatase 121 H Total Protein 5.8 L Albumin 2.3 L Vancomycin Pre-Dose 16.86 H* D 06/14/18 06/15/18 21:56 06:19 Sodium Potassium Chloride Carbon Dioxide Anion Gap BUN Creatinine Creat Clearance w eGFR POC Glucometer 312 113 Random Glucose Calcium Magnesium Total Bilirubin Direct Bilirubin AST ALT Alkaline Phosphatase Total Protein Albumin Vancomycin Pre-Dose Active Medications Generic Name Dose Route Start Last Admin Trade Name Freq PRN Reason Stop Dose Admin Acetaminophen 650 mg 06/13/18 20:32 06/15/18 01:51 Tylenol - PO 650 mg Q6H PRN Administration PAIN LEVEL 6-10 Allopurinol 300 mg 06/11/18 10:00 06/14/18 09:23 Zyloprim - PO 300 mg DAILY KEVEN Administration Amlodipine Besylate 5 mg 06/11/18 10:00 06/14/18 09:23 Norvasc - PO 5 mg DAILY KEVEN Administration Aspirin 81 mg 06/10/18 14:45 06/14/18 09:24 Asa - PO 81 mg DAILY KEVEN Administration Atorvastatin Calcium 40 mg 06/10/18 22:00 06/14/18 22:08 Lipitor - PO 40 mg HS KEVEN Administration Clopidogrel Bisulfate 75 mg 06/10/18 14:45 06/14/18 09:23 Plavix - PO 75 mg DAILY KEVEN Administration Fluoxetine HCl 40 mg 06/11/18 10:00 06/14/18 09:22 Prozac - PO 40 mg DAILY KEVEN Administration Heparin Sodium (Porcine) 5,000 unit 06/10/18 10:00 06/14/18 22:08 Heparin - SQ 5,000 unit BID KEVEN Administration Piperacillin Sod/Tazobactam Sod 3.375 gm in 50 mls @ 100 mls/hr 06/10/18 10: 00 06/15/18 01:52 Zosyn 3.375gm Ivpb (Pre-Docked) IVPB 100 mls/hr Q8H-IV [facility] Administration Protocol Vancomycin HCl 1,250 mg/ 250 mls @ 166.667 mls/hr 06/15/18 10:00 Dextrose IVPB DAILY@1000 [facility] Insulin Aspart 1 vial 06/14/18 22:15 06/15/18 06:35 Novolog Vial Sliding Scale - SQ Not Given ACHS [facility] Protocol Insulin Detemir 10 units 06/10/18 22:00 06/14/18 22:11 Levemir Vial SQ 10 units HS [facility] Administration Lactobacillus Acidophilus 1 tab 06/14/18 10:00 06/14/18 14:30 Bacid - PO 1 tab DAILY [facility] Administration Metoprolol Succinate 12.5 mg 06/10/18 14:45 06/14/18 09:22 Toprol Xl - PO 12.5 mg DAILY [facility] Administration Non-Formulary Medication 10 ml 06/11/18 10:00 06/14/18 09:24 Loteprednol Etabonate [Lotemax] OD Not Given DAILY [facility] Oxycodone HCl 5 mg 06/13/18 20:31 06/15/18 01:51 Roxicodone - PO 5 mg Q6H PRN Administration PAIN LEVEL 6 - 10 Ropinirole HCl 3 mg 06/10/18 14:37 Requip - PO TID PRN RESTLESS LEG SYNDROME Imaging 06/09 CT: bone destruction first distal phalanx with small adjacent bone fragments, significant swelling consistent with infection v. osteo 06/10 MRI: +osteo ASSESSMENT/PLAN Patient is a 72 year-old male with a significant past medical history of hypertension, CAD s/p stent, diabetes, lung cancer s/p RT and gout. Patient was admitted on 06/09/18 for left great toe cellulitis with osteomyelitis. ID: Left great toe cellulitis/osteomyelitis: Patient is s/p I&D. Wound cultures pending final sensitivies. Blood cultures negative. On Vanco and Zosyn. Patient will need central line prior to d/c for continuation of antibiotic therapy. Patient to follow up at wound care clinic and [facility]. MS: Gout history, uric acid wnl, on allopurinol Renal: DEISY: s/p right nephrectomy and left non obstructing renal calculus. Unknown baseline. Outpatient renal follow up. Endocrine: Diabetes: elevated BGMs, tightened SS, on levemir 10 hs Card: CAD:On Lipitor,Plavix, ASA Htn: toprox xl daily, BP controlled Psyche: Depression: on prozac fen tolerating PO monitor electrolyes PO intake adequate, diabetic diet prophy heparin Visit type - Emergency Visit Emergency Visit: Yes ED Registration Date: 06/09/18 Care time: The patient presented to the Emergency Department on the above date and was hospitalized for further evaluation of their emergent condition. - New Patient This patient is new to me today: Yes Date on this admission: 06/15/18 - Critical Care Critical Care patient: No - Discharge Referral Referred to [facility] Med P.C.: No
[2018-06-15 09:00] LABS: ANION GAP 8 MMOL/L (8-16); BLOOD UREA NITROGEN 30 mg/dl (7-18); CALCIUM 8.7 mg/dl (8.4-10.2); CHLORIDE 103 mmol/L (98-107); CO2 25 mmol/L (22-28); CREATININE 1.4 mg/dl (0.6-1.3); GLUCOSE,RANDOM 110 mg/dl (74-106); POTASSIUM 5.3 mmol/L (3.5-5.1); SODIUM 136 mmol/L (136-145)
[2018-06-15] MEDS: HEPARIN NA (PORCINE) 5,000 UNITS/ML 1ML VIAL SQ SCH ×2 (09:21→21:20)
[2018-06-15] MEDS: ASPIRIN 81 MG CHEWABLE TABLETS PO SCH (09:21)
[2018-06-15] MEDS: amLODIPine BESYLATE 5 MG TABLET (FP) PO SCH (09:21)
[2018-06-15] MEDS: LACTOBACILLUS ACIDOPHILUS 1 TABLET PO SCH (09:21)
[2018-06-15] MEDS: metoPROLOL SUCCINATE 25 MG TAB.SR.24H (FP) PO SCH (09:22)
[2018-06-15] MEDS: ALLOPURINOL 300 MG TABLET (FP) PO SCH (09:23)
[2018-06-15] MEDS: FLUoxetine HCL 20 MG CAPSULE (FP) PO SCH (09:26)
[2018-06-15] MEDS: CLOPIDOGREL BISULFATE 75 MG TABLET (FP) PO SCH (09:26)
[2018-06-15] MEDS ORDERED: POLYETHYLENE GLYCOL 3350 119 GM BTL PO ONE (09:45)
[2018-06-15] MEDS ORDERED: VANCOMYCIN 1,250 MG in DEXTROSE 5%-WATER - 250 ML IVPB SCH (10:00)
--- NOTE | 2018-06-15 15:16 | PN ---
Progress Note (short form) - Note Progress Note: FUV left foot. States he feels better. No pain. POD#3 vss, Tmax 98.1 +resolved cellulitis left big toe , +grade 0 wound sub left big toe, mri + for om, uric acid wnl, wbc=8.8, xklv9q=0.3, seb=067, -fluctuance, -drainage, +MRSA on wound culture om resolved cellulitis Continue IVABX. Can be dc from Podiatry Standpoint. Will follow till dc. Post op shoe left. CBC with diff, esr today.
[2018-06-15] MEDS ORDERED: INSULIN (NOVOLOG) ASPART 100 UNITS/ML 10ML VIAL ONE (16:30)
[2018-06-15] MEDS: DOCUSATE SODIUM 100 MG CAPSULE (FP) PO SCH ×2 (16:55→21:20)
[2018-06-15] MEDS ORDERED: PANTOPRAZOLE 20 MG TABLET (FP) PO SCH (20:15)
[2018-06-15] MEDS: ATORVASTATIN CA 40 MG TABLET (FP) PO SCH (21:20)
[2018-06-15] MEDS: INSULIN (LEVEMIR) 100 UNITS/ML UNITS SQ SCH (21:21)
[2018-06-16] MEDS: PIPERACILLIN/TAZOB 3.375 GM 3.375 GM/50 ML BAG IVPB SCH (02:05)
[2018-06-16] MEDS: INSULIN SLIDING SCALE (NOVOLOG) 1 VIAL SQ SCH (06:18)
[2018-06-16] MEDS: DOCUSATE SODIUM 100 MG CAPSULE (FP) PO SCH (06:19)
[2018-06-16 06:26] VITALS: BP 111/56; PULSE 41; TEMP 97.4
[2018-06-16] MEDS ORDERED: PT OWN MED DRAWER 7, Y5N ONE ×2 (07:31→08:13)
--- NOTE | 2018-06-16 07:42 | PN ---
Physical Exam: SUBJECTIVE: Patient seen and examined OBJECTIVE: Vital Signs Period Temp Pulse Resp BP Sys/Delgado Pulse Ox Last 24 Hr 97.4 F-98.7 F 41-56 17-18 106-140/55-63 99-99 GENERAL: The patient is awake, alert, and fully oriented, in no acute distress. HEAD: Normal with no signs of trauma. EYES: PERRL, extraocular movements intact, sclera anicteric, conjunctiva clear. No ptosis. ENT: Ears normal, nares patent, oropharynx clear without exudates, moist mucous membranes. NECK: Trachea midline, full range of motion, supple. LUNGS: Breath sounds equal, clear to auscultation bilaterally, no wheezes, no crackles, no accessory muscle use. HEART: Regular rate and rhythm, S1, S2 without murmur, rub or gallop. ABDOMEN: Soft, nontender, nondistended, normoactive bowel sounds, no guarding, no rebound, no hepatosplenomegaly, no masses. EXTREMITIES: 2+ pulses, warm, well-perfused, no edema. NEUROLOGICAL: Cranial nerves II through XII grossly intact. Normal speech, gait not observed. PSYCH: Normal mood, normal affect. SKIN: Warm, dry, normal turgor, no rashes or lesions noted Laboratory Results - last 24 hr 06/15/18 06/15/18 06/15/18 08:00 16:28 21:19 Sodium 136 Potassium 5.3 H D Chloride 103 Carbon Dioxide 25 Anion Gap 8 BUN 30 H Creatinine 1.4 H Creat Clearance w eGFR 49.96 POC Glucometer 259 232 Random Glucose 110 H Calcium 8.7 Creatine Kinase Troponin I 06/16/18 06/16/18 04:30 06:01 Sodium Potassium Chloride Carbon Dioxide Anion Gap BUN Creatinine Creat Clearance w eGFR POC Glucometer 153 Random Glucose Calcium Creatine Kinase 44 Troponin I 0.03 Active Medications Generic Name Dose Route Start Last Admin Trade Name Freq PRN Reason Stop Dose Admin Acetaminophen 650 mg 06/13/18 20:32 06/15/18 01:51 Tylenol - PO 650 mg Q6H PRN Administration PAIN LEVEL 6-10 Allopurinol 300 mg 06/11/18 10:00 06/15/18 09:23 Zyloprim - PO 300 mg DAILY [facility]EV[facility] Administration Amlodipine Besylate 5 mg 06/11/18 10:00 06/15/18 09:21 Norvasc - PO 5 mg DAILY [facility] Administration Aspirin 81 mg 06/10/18 14:45 06/15/18 09:21 Asa - PO 81 mg DAILY KEV[facility] Administration Atorvastatin Calcium 40 mg 06/10/18 22:00 06/15/18 21:20 Lipitor - PO 40 mg HS KEVEN Administration Clopidogrel Bisulfate 75 mg 06/10/18 14:45 06/15/18 09:26 Plavix - PO 75 mg DAILY KEVEN Administration Docusate Sodium 100 mg 06/15/18 14:00 06/16/18 06:19 Colace - PO 100 mg TID KEVEN Administration Fluoxetine HCl 40 mg 06/11/18 10:00 06/15/18 09:26 Prozac - PO 40 mg DAILY KEV[facility] Administration Heparin Sodium (Porcine) 5,000 unit 06/10/18 10:00 06/15/18 21:20 Heparin - SQ 5,000 unit BID KEV[facility] Administration Piperacillin Sod/Tazobactam Sod 3.375 gm in 50 mls @ 100 mls/hr 06/10/18 10: 00 06/16/18 02:05 Zosyn 3.375gm Ivpb (Pre-Docked) IVPB 100 mls/hr Q8H-IV [facility] Administration Protocol Vancomycin HCl 1,250 mg/ 250 mls @ 166.667 mls/hr 06/15/18 10:00 06/15/18 09: 22 Dextrose IVPB 166.667 mls/hr DAILY@1000 [facility] Administration Insulin Aspart 1 vial 06/15/18 14:38 06/16/18 06:18 Novolog Vial Sliding Scale - SQ 4 units ACHS [facility] Administration Protocol Insulin Detemir 10 units 06/10/18 22:00 06/15/18 21:21 Levemir Vial SQ 10 units HS [facility] Administration Lactobacillus Acidophilus 1 tab 06/14/18 10:00 06/15/18 09:21 Bacid - PO 1 tab DAILY [facility] Administration Non-Formulary Medication 10 ml 06/11/18 10:00 06/14/18 09:24 Loteprednol Etabonate [Lotemax] OD Not Given DAILY [facility] Oxycodone HCl 5 mg 06/13/18 20:31 06/15/18 01:51 Roxicodone - PO 5 mg Q6H PRN Administration PAIN LEVEL 6 - 10 Pantoprazole Sodium 20 mg 06/15/18 20:15 06/15/18 21:40 Protonix - PO 20 mg DAILY KEVEN Administration Ropinirole HCl 3 mg 06/10/18 14:37 Requip - PO TID PRN RESTLESS LEG SYNDROME ASSESSMENT/PLAN:
--- NOTE | 2018-06-16 08:35 | PN ---
Progress Note, Physician History of Present Illness: Awake, alert S/P bedside aspiration of great toe Low grade temp WBC WNL Cultures pending - Current Medication List Current Medications: Active Medications Acetaminophen (Tylenol -) 650 mg PO Q6H PRN PRN Reason: PAIN LEVEL 6-10 Last Admin: 06/15/18 01:51 Dose: 650 mg Allopurinol (Zyloprim -) 300 mg PO DAILY [facility] Last Admin: 06/15/18 09:23 Dose: 300 mg Amlodipine Besylate (Norvasc -) 5 mg PO DAILY [facility] Last Admin: 06/15/18 09:21 Dose: 5 mg Aspirin (Asa -) 81 mg PO DAILY [facility] Last Admin: 06/15/18 09:21 Dose: 81 mg Atorvastatin Calcium (Lipitor -) 40 mg PO HS [facility] Last Admin: 06/15/18 21:20 Dose: 40 mg Clopidogrel Bisulfate (Plavix -) 75 mg PO DAILY [facility] Last Admin: 06/15/18 09:26 Dose: 75 mg Docusate Sodium (Colace -) 100 mg PO TID [facility] Last Admin: 06/16/18 06:19 Dose: 100 mg Fluoxetine HCl (Prozac -) 40 mg PO DAILY [facility] Last Admin: 06/15/18 09:26 Dose: 40 mg Heparin Sodium (Porcine) (Heparin -) 5,000 unit SQ BID [facility] Last Admin: 06/15/18 21:20 Dose: 5,000 unit Piperacillin Sod/Tazobactam Sod (Zosyn 3.375gm Ivpb (Pre-Docked)) 3.375 gm in 50 mls @ 100 mls/hr IVPB Q8H-IV [facility]; Protocol Last Admin: 06/16/18 02:05 Dose: 100 mls/hr Vancomycin HCl 1,250 mg/ (Dextrose) 250 mls @ 166.667 mls/hr IVPB DAILY@1000 [facility] Last Admin: 06/15/18 09:22 Dose: 166.667 mls/hr Insulin Aspart (Novolog Vial Sliding Scale -) 1 vial SQ ACHS [facility]; Protocol Last Admin: 06/16/18 06:18 Dose: 4 units Insulin Detemir (Levemir Vial) 10 units SQ HS [facility] Last Admin: 06/15/18 21:21 Dose: 10 units Lactobacillus Acidophilus (Bacid -) 1 tab PO DAILY [facility] Last Admin: 06/15/18 09:21 Dose: 1 tab Non-Formulary Medication (Loteprednol Etabonate [Lotemax]) 10 ml OD DAILY [facility] Last Admin: 06/14/18 09:24 Dose: Not Given Oxycodone HCl (Roxicodone -) 5 mg PO Q6H PRN PRN Reason: PAIN LEVEL 6 - 10 Last Admin: 06/15/18 01:51 Dose: 5 mg Pantoprazole Sodium (Protonix -) 20 mg PO DAILY [facility] Last Admin: 06/15/18 21:40 Dose: 20 mg Ropinirole HCl (Requip -) 3 mg PO TID PRN PRN Reason: RESTLESS LEG SYNDROME - Objective Vital Signs: Vital Signs Temperature 97.4 F L 06/16/18 06:25 Pulse Rate 41 L 06/16/18 06:25 Respiratory Rate 17 06/16/18 06:25 Blood Pressure 111/56 06/16/18 06:25 O2 Sat by Pulse Oximetry (%) 99 06/15/18 21:00 Labs: CBC, BMP 06/13/18 08:00 06/15/18 08:00
--- NOTE | 2018-06-16 14:07 | DS ---
Physical Exam: SUBJECTIVE: Patient seen and examined, patient is requesting discharge home, ambulatory at bedside, self discontinued telemetry, declines venipuncture, declines PICC line or midline, declines any further intervention, wants to go home. OBJECTIVE:This is a 72-year-old male with history of say-glatstk-kphqvfggt diabetes, CAD s/p stent, Glaucoma, R- Kidney Ca, Bladder Ca, Lung Ca (RT), Chronic Alcohol. Who presents to the ED with a progressive infection in his foot for approximately one week. Patient reports that he has some oral cactus fell on him and injured his foot and then it became infected. Patient also states" he has gout and thinks that a component". Patient reports walking barefoot in his front and backward generally. Patient denies fever chills, cough , SOB, CP, palpitations. Patient reports feeling depressed and stays home most of the time. Patient denies suicidal or homicidal ideation ER course was notable for: (1) CT of lower extremity- osteomyelitis (2) Na 133 Vital Signs Period Temp Pulse Resp BP Sys/Delgado Pulse Ox Last 24 Hr 97.4 F-98.7 F 41-56 17-18 106-140/55-63 99-99 PHYSICAL EXAM GENERAL: The patient is awake, alert, and fully oriented, in no acute distress. HEAD: Normal with no signs of trauma. EYES: PERRL, extraocular movements intact, sclera anicteric, conjunctiva clear. ENT: Ears normal, nares patent, oropharynx clear without exudates, moist mucous membranes. NECK: Trachea midline, full range of motion, supple. LUNGS: Breath sounds equal, clear to auscultation bilaterally, no wheezes, no crackles, no accessory muscle use. HEART: Regular rate and rhythm, S1, S2 without murmur, rub or gallop. ABDOMEN: Soft, nontender, nondistended, normoactive bowel sounds, no guarding, no rebound, no hepatosplenomegaly, no masses. EXTREMITIES: 2+ pulses, warm, well-perfused, no edema. NEUROLOGICAL: Cranial nerves II through XII grossly intact. Normal speech, gait not observed. PSYCH: Normal mood, normal affect. SKIN: left great toe, no erythema noted, echymosis, less than 3 Second capillary refill +3 pedal pulse, Warm, dry, normal turgor, no rashes or lesions noted. LABS Laboratory Results - last 24 hr 06/15/18 06/15/18 06/16/18 16:28 21:19 04:30 POC Glucometer 259 232 Creatine Kinase 44 Troponin I 0.03 06/16/18 06:01 POC Glucometer 153 Creatine Kinase Troponin I Microbiology 06/12/18 16:30 Toe - Left Hallux Gram Stain - Final 06/12/18 16:30 Toe - Left Hallux Wound Culture - Preliminary Staphylococcus Aureus 06/09/18 20:40 Blood - Peripheral Venous Blood Culture - Final NO GROWTH AFTER 5 DAYS INCUBATION 06/09/18 20:40 Blood - Peripheral Venous Blood Culture - Final NO GROWTH AFTER 5 DAYS INCUBATION 06/09/18 21:40 Urine - Urine Clean Catch Urine Culture - Final NO GROWTH OBTAINED Imaging 06/09 CT: bone destruction first distal phalanx with small adjacent bone fragments, significant swelling consistent with infection v. osteo 06/10 MRI: +osteo HOSPITAL COURSE: ID: Left great toe cellulitis/osteomyelitis: Patient is s/p I&D, 06/13/2018 by podiatry, patient will require outpatient hyperbarics and wound cultures preliminary Staphylococcus aureus pending final culture. Patient will require IV antibiotics via central line, patient adamantly declined central line placement requesting discharge home declined any further antibiotics MS: Gout history, uric acid wnl, on allopurinol Renal: DEISY: s/p right nephrectomy and left non obstructing renal calculus. Unknown baseline. Outpatient renal follow up. Endocrine: Diabetes: elevated BGMs, tightened SS, on levemir 10 hs Card: CAD:On Lipitor,Plavix, ASA Htn: toprox xl daily, BP controlled Bradycardia, patient developed an episode of symptomatic bradycardia heart rate noted, repeat ekg notable for a fib with slow ventricular response, patient declines any further cardiology testing, declines echocardiogram and cardiology consult. Psyche: Depression: on prozac PLAN Note: The patient insists on leaving the Hospital and is signing out against medical advice. Care being refused: Cardiology consultation telemetry further cardiac diagnostic , IV antibiotic and central line placement The patient understands the risks and complications that may result from the refusal of medical care which may include and permanent disability. The patient has the mental capacity of understanding the risks of refusing care and is capable of making an informed decision. The patient was instructed to return to the Emergency Department should he/she change his/her mind regarding medical care or should his/her condition worsen. The patient signed the Against Medical Advice form. Date of Admission:06/09/18 Date of Discharge: 06/16/18 Minutes to complete discharge: 45 Discharge Summary Reason For Visit: INFECTION RIGHT FOOT Current Active Problems Depression (Acute) Diabetes mellitus (Acute) Diabetic foot infection (Acute) HTN (hypertension) (Acute) Osteomyelitis (Acute) Condition: Guarded - Instructions Disposition: AGAINST MEDICAL ADVICE - Home Medications Comprehensive Discharge Medication List: Ambulatory Orders Allopurinol 300 mg PO DAILY 10/12/16 Amlodipine Besylate [Norvasc -] 5 mg PO DAILY 10/12/16 Aspirin [ASA -] 81 mg PO DAILY 10/12/16 Atorvastatin Ca [Lipitor] 40 mg PO HS 10/12/16 Calcium Citrate/Vitamin D3 [Calcium Citrate - Vit D Caplet] 1 each PO DAILY Cholecalciferol (Vitamin D3) [Vitamin D3] 2,000 unit PO DAILY 10/12/16 Clopidogrel Bisulfate [Clopidogrel] 75 mg PO DAILY 10/12/16 Cyanocobalamin [Vitamin B12 -] 1,000 mcg PO DAILY 10/12/16 Fluoxetine HCl 40 mg PO DAILY 10/12/16 Glipizide [Glipizide ER] 10 mg PO DAILY 10/12/16 Insulin Detemir [Levemir Flextouch] 10 unit SQ HS 10/12/16 Levofloxacin [Levaquin] 750 mg PO DAILY #10 tablet 10/12/16 Liraglutide [Victoza -] 1.2 mg SQ DAILY@0700 10/12/16 Losartan Potassium 50 mg PO DAILY 10/12/16 Loteprednol Etabonate [Lotemax] 10 ml OD DAILY 10/12/16 Methylphenidate HCl 20 mg PO ASDIR PRN 10/12/16 Metoprolol Succinate [Toprol Xl -] 12.5 mg PO DAILY 10/12/16 Ropinirole HCl [Requip] 3 mg PO TID PRN 10/12/16 Vardenafil HCl [Levitra] 20 mg PO PRN PRN 10/12/16 This patient is new to me today: Yes Date on this admission: 06/16/18 Emergency Visit: No Critical Care patient: No - Discharge Referral Referred to [facility] Med [facility] No
--- NOTE | 2018-06-17 13:36 | EKG ---
Test Reason : Blood Pressure : / mmHG Vent. Rate : 043 BPM Atrial Rate : 035 BPM P-R Int : 000 ms QRS Dur : 160 ms QT Int : 568 ms P-R-T Axes : 000 -20 093 degrees QTc Int : 479 ms JUNCTIONAL BRADYCARDIA LEFT BUNDLE BRANCH BLOCK ABNORMAL ECG WHEN COMPARED WITH ECG OF 16-JUN-2018 03:56, CURRENT UNDETERMINED RHYTHM PRECLUDES RHYTHM COMPARISON, NEEDS REVIEW Confirmed by Jose Gomez ([id number]) on 06/17/2018 1:35:51 PM Referred By: Confirmed By:Jose Gomez
== END 2018-06-16 09:26 | disposition left against medical advice (07) | DRG 540 ==
LOC: FER 20:04 → FM/S 21:41 → UNDOADMIN 23:07 → FM/S 23:07
PROVIDERS: ADMIT Internal Medicine; ATTEND Nurse Practitioner Family
PROC: 0H9NXZX Drainage of Left Foot Skin, External Approach, Diagnostic (ICD-10-PCS; principal; 2018-06-12)
DX: M86.172 Other acute osteomyelitis, left ankle and foot (principal); L97.528 Non-pressure chronic ulcer of other part of left foot with other specified severity; L03.116 Cellulitis of left lower limb; E87.1 Hypo-osmolality and hyponatremia; J98.11 Atelectasis; J90 Pleural effusion, not elsewhere classified; N17.9 Acute kidney failure, unspecified; E11.621 Type 2 diabetes mellitus with foot ulcer; B95.62 Methicillin resistant Staphylococcus aureus infection as the cause of diseases classified elsewhere; I25.10 Atherosclerotic heart disease of native coronary artery without angina pectoris; I44.7 Left bundle-branch block, unspecified; H40.9 Unspecified glaucoma; F10.10 Alcohol abuse, uncomplicated; G25.81 Restless legs syndrome; F32.9 Major depressive disorder, single episode, unspecified; E11.628 Type 2 diabetes mellitus with other skin complications; N20.0 Calculus of kidney; L08.9 Local infection of the skin and subcutaneous tissue, unspecified; M1A.9XX1 Chronic gout, unspecified, with tophus (tophi); Z85.528 Personal history of other malignant neoplasm of kidney; Z95.5 Presence of coronary angioplasty implant and graft; Z85.118 Personal history of other malignant neoplasm of bronchus and lung; Z87.891 Personal history of nicotine dependence; Z85.51 Personal history of malignant neoplasm of bladder; Z79.4 Long term (current) use of insulin; Z90.5 Acquired absence of kidney
CPT/HCPCS: 36415; 71045-TC-FY; 73700-TC-RT; 73718-LT; 76775-TC; 80048; 80053; 80076; 80307; 81003; 81015; 82550; 82962; 83036; 83735; 84484; 84550; 85025; 85651; 86140; 87040; 87070; 87086; 87186; 87205; 93005; 99281-25; G0480; J1644

== ENCOUNTER 2018-06-17 17:20 | Observation (INO) | payer OTHER, MEDICARE ==
--- NOTE | 2018-06-17 17:31 | PDOC ---
Rapid Medical Evaluation Chief Complaint: Revisit,Wound Recheck Time Seen by Provider: 06/17/18 17:26 Medical Evaluation: Allergies Allergy/AdvReac Type Severity Reaction Status Date / Time No Known Allergies Allergy Verified 06/09/18 20:06 06/17/18 17:26 Pt presents from wound care for PICC line placement. Pt states wound care wants to place him on a 6 week IV abx for a L foot wounds. Exam: Pt in wheel chair, pt with L foot dressing Orders: Labs, Urine Pt to proceed to ED for further evaluation Discharge Disposition - Diagnosis Wound of foot - Referrals - Patient Instructions - Post Discharge Activity
[2018-06-17] MEDS: CEFAZOLIN 2 GM/D5W 2 GM/50 ML ML IVPB SCH (19:07)
[2018-06-17 19:10] LABS: EOS % 0.5 % (0-4.5); HEMOGLOBIN 13.7 GM/dL (11.7-16.9); LYMPH % 6.2 % (8-40); MCH 30.8 pg (25.7-33.7); MCHC 33.4 g/dl (32.0-35.9); MEAN CELL VOLUME 91.9 fl (80-96); MONO % 7.6 % (3.8-10.2); NEUT % 84.7 % (42.8-82.8); PLATELET COUNT 427 K/MM3 (134-434); RBC 4.46 M/mm3 (4.00-5.60); RDW 13.6 % (11.9-15.9); WHITE BLOOD COUNT 9.1 K/mm3 (4.0-10.0)
[2018-06-17 19:22] LABS: INR 1.27 (0.83-1.09); PROTHROMBIN TIME (PATIENT) 14.4 SEC (9.7-13.0)
[2018-06-17 19:35] LABS: ALBUMIN 2.6 g/dl (3.4-5.0); ANION GAP 9 MMOL/L (8-16); BLOOD UREA NITROGEN 36 mg/dL (7-18); CALCIUM 9.1 mg/dL (8.5-10.1); CHLORIDE 100 mmol/L (98-107); CO2 27 mmol/L (21-32); GLUCOSE,RANDOM 175 mg/dL (74-106); SGOT/AST 35 U/L (15-37); SGPT/ALT 72 U/L (12-78); SODIUM 136 mmol/L (136-145)
[2018-06-17 19:37] LABS: ALK PHOS 192 U/L (45-117); BILIRUBIN,TOTAL 0.8 mg/dL (0.2-1.0); TOT PROT 6.3 g/dl (6.4-8.2)
--- NOTE | 2018-06-17 19:49 | PDOC ---
History of Present Illness - General Chief Complaint: PICC Line Insertion Stated Complaint: [facility] Time Seen by Provider: 06/17/18 17:26 History Source: Patient Exam Limitations: No Limitations - History of Present Illness Initial Comments: 06/17/18 19:44 Mr. Davidson is a 72 yo M with a hx of DM, CAD s/p 1x stent, glaucoma, R kidney cancer, R lung cancer, and hx of alcoholism presents to the emergency department at the direction of Dr. Stone for PICC line placement. He was recently treated at [facility] for osteomyelitis in the left great toe. He was admitted and hospitalized for 1 week before leaving AMA yesterday. Per the patient, he left because they were delaying the insertion of his PICC line thus leaving AMA. He was sent here for admission by Dr. Stone for further treatment and in order to be discharged to receive a PICC line. Dr. Toney, per Dr. Alexander, will see the patient in the AM tomorrow. He was seen at the wound care clinic today at [facility]. Denies the following: fever, headaches, chest pain, SOB, abdominal pain, dysuria, hematuria, diarrhea, nausea, vomiting, and hematochezia/melena. 06/17/18 22:01 06/17/18 22:08 Past History - Past Medical History Allergies/Adverse Reactions: Allergies Allergy/AdvReac Type Severity Reaction Status Date / Time No Known Allergies Allergy Verified 06/17/18 17:28 Home Medications: Ambulatory Orders Allopurinol 300 mg PO DAILY 10/12/16 Amlodipine Besylate [Norvasc -] 5 mg PO DAILY 10/12/16 Aspirin [ASA -] 81 mg PO DAILY 10/12/16 Atorvastatin Ca [Lipitor] 40 mg PO HS 10/12/16 Calcium Citrate/Vitamin D3 [Calcium Citrate - Vit D Caplet] 1 each PO DAILY Cholecalciferol (Vitamin D3) [Vitamin D3] 2,000 unit PO DAILY 10/12/16 Clopidogrel Bisulfate [Clopidogrel] 75 mg PO DAILY 10/12/16 Cyanocobalamin [Vitamin B12 -] 1,000 mcg PO DAILY 10/12/16 Fluoxetine HCl 40 mg PO DAILY 10/12/16 Glipizide [Glipizide ER] 10 mg PO DAILY 10/12/16 Insulin Detemir [Levemir Flextouch] 10 unit SQ HS 10/12/16 Liraglutide [Victoza -] 1.2 mg SQ DAILY@0700 10/12/16 Losartan Potassium 50 mg PO DAILY 10/12/16 Loteprednol Etabonate [Lotemax] 10 ml OD DAILY 10/12/16 Methylphenidate HCl 20 mg PO ASDIR PRN 10/12/16 Metoprolol Succinate [Toprol Xl -] 12.5 mg PO DAILY 10/12/16 Ropinirole HCl [Requip] 3 mg PO TID PRN 10/12/16 Vardenafil HCl [Levitra] 20 mg PO PRN PRN 10/12/16 Anemia: No Asthma: No Cancer: Yes (LUNGx2 , 2010BLADDER and kidney) Cardiac Disorders: Yes (STENT X1) CVA: No COPD: No CHF: No Dementia: No Diabetes: Yes (TYPE II) GI Disorders: Yes (perforated ulcer) HTN: Yes Hypercholesterolemia: Yes Liver Disease: No Seizures: No Thyroid Disease: No Other medical history: left foot chronic wound - Surgical History Abdominal Surgery: No Appendectomy: No Cardiac Surgery: Yes (stent) Cholecystectomy: No Lung Surgery: Yes (LEFT LOBECTOMY) Orthopedic Surgery: No - Suicide/Smoking/Psychosocial Hx Smoking History: Never smoked Have you smoked in the past 12 months: No If you are a former smoker, when did you quit?: 30 YRS AGO Information on smoking cessation initiated: No Hx Alcohol Use: Yes (daily) Drug/Substance Use Hx: No Substance Use Type: Alcohol Hx Substance Use Treatment: Yes Review of Systems - Review of Systems Able to Perform ROS?: Yes Constitutional: No: Chills, Diaphoresis, Fever HEENTM: No: Recent change in vision, Ear Pain, Nose Pain, Throat Pain, Mouth Pain Respiratory: No: Cough, Shortness of Breath Cardiac (ROS): No: Chest Pain, Palpitations, Syncope ABD/GI: No: Constipated, Diarrhea, Nausea, Rectal Bleeding, Vomiting, Tarry Stools : No: Burning, Dysuria, Hematuria Musculoskeletal: Yes: Other (left toe pain 1st digit. ). No: Back Pain Integumentary: No: Rash, Sweating Neurological: No: Headache, Numbness, Tremors, Weakness Psychiatric: No: Stressors Endocrine: No: Unexplained Weight Gain Hematologic/Lymphatic: No: Anemia *Physical Exam - Vital Signs Last Vital Signs Temp Pulse Resp BP Pulse Ox 97 F L 66 18 117/62 99 06/17/18 17:25 06/17/18 17:25 06/17/18 17:25 06/17/18 17:25 06/17/18 17:25 - Physical Exam General Appearance: Yes: Nourished, Appropriately Dressed HEENT: positive: EOMI, MELVIN, Normal Voice Neck: negative: Lymphadenopathy (R), Lymphadenopathy (L) Respiratory/Chest: positive: Lungs Clear, Normal Breath Sounds Cardiovascular: positive: Regular Rhythm, Regular Rate, S1, S2. negative: Systolic Murmur Vascular Pulses: Dorsalis-Pedis (R): 3+, Doralis-Pedis (L): 3+ Gastrointestinal/Abdominal: positive: Normal Bowel Sounds. negative: Tender Lymphatic: negative: Adenopathy Musculoskeletal: positive: Other (allograft placed on left great toe. ). negative: CVA Tenderness Extremity: positive: Erythema (in the left great toe. ). negative: Swelling, Calf Tenderness Integumentary: positive: Normal Color, Dry, Warm Neurologic: positive: ict sales assistant II-XII NML intact, Fully Oriented, Alert, Motor Strength 02/22 ED Treatment Course - LABORATORY CBC & Chemistry Diagram: 06/17/18 18:51 06/17/18 18:51 - ADDITIONAL ORDERS Additional order review: Laboratory Results 06/17/18 18:51 PT with INR 14.40 H INR 1.27 H 06/17/18 18:51 RBC 4.46 MCV 91.9 MCHC 33.4 RDW 13.6 MPV 8.0 Neutrophils % 84.7 H Lymphocytes % 6.2 L Monocytes % 7.6 Eosinophils % 0.5 Basophils % 1.0 Medical Decision Making - Medical Decision Making 06/18/18 01:01 72 yo M with significant past medical hx presenting to the ED for PICC line placement after AMA yesterday at [facility] with recommendation to admit by Dr. Stone with Dr. Toney following tomorrow AM. Initial vitals: Initial Vital Signs Temp Pulse Resp BP Pulse Ox 97 F L 66 18 117/62 99 06/17/18 17:25 06/17/18 17:25 06/17/18 17:25 06/17/18 17:25 06/17/18 17:25 Work up Laboratory Tests 06/17/18 06/17/18 06/17/18 18:51 18:51 18:51 WBC 9.1 RBC 4.46 Hgb 13.7 Hct 41.0 MCV 91.9 MCH 30.8 MCHC 33.4 RDW 13.6 Plt Count 427 MPV 8.0 Absolute Neuts (auto) 7.7 Neutrophils % 84.7 H Lymphocytes % 6.2 L Monocytes % 7.6 Eosinophils % 0.5 Basophils % 1.0 Nucleated RBC % 0 PT with INR 14.40 H INR 1.27 H Sodium 136 Potassium 5.0 Chloride 100 Carbon Dioxide 27 Anion Gap 9 BUN 36 H Creatinine 2.0 H Creat Clearance w eGFR 33.10 Random Glucose 175 H Calcium 9.1 Total Bilirubin 0.8 AST 35 ALT 72 Alkaline Phosphatase 192 H Total Protein 6.3 L Albumin 2.6 L Urine Color Urine Appearance Urine pH Ur Specific [place] Urine Protein Urine Glucose (UA) Urine Ketones Urine Blood Urine Nitrite Urine Bilirubin Urine Urobilinogen Ur Leukocyte Esterase Urine WBC (Auto) Urine RBC (Auto) Ur Epithelial Cells Hyaline Casts Urine Mucus 06/17/18 20:50 WBC RBC Hgb Hct MCV MCH MCHC RDW Plt Count MPV Absolute Neuts (auto) Neutrophils % Lymphocytes % Monocytes % Eosinophils % Basophils % Nucleated RBC % PT with INR INR Sodium Potassium Chloride Carbon Dioxide Anion Gap BUN Creatinine Creat Clearance w eGFR Random Glucose Calcium Total Bilirubin AST ALT Alkaline Phosphatase Total Protein Albumin Urine Color Felipa Urine Appearance Slcloudy Urine pH 5.0 Ur Specific [place] 1.025 Urine Protein 2+ H Urine Glucose (UA) Negative Urine Ketones Negative Urine Blood Negative Urine Nitrite Negative Urine Bilirubin Negative Urine Urobilinogen 2.0 Ur Leukocyte Esterase Negative Urine WBC (Auto) 2 Urine RBC (Auto) 2 Ur Epithelial Cells Rare Hyaline Casts 1 Urine Mucus Rare Spoke to [facility] for admission. Based on the note written by the wound care clinic, their plan is to have him admitted and seen by Dr. Toney tomorrow AM with discharge to acquire the PICC line. Pt has no symptomatic complaints. Dispo: Home *DC/Admit/Observation/Transfer Diagnosis at time of Disposition: Wound of foot - Referrals - Patient Instructions - Post Discharge Activity
[2018-06-17 20:59] LABS: URINE APPEARANCE SLCLOUDY; URINE BILIRUBIN NEGATIVE (<2.0 mg/dL); URINE COLOR AMBER; URINE GLUCOSE (UA) NEGATIVE (NEGATIVE); URINE KETONE NEGATIVE (NEGATIVE); URINE LEUK ESTERASE NEGATIVE (NEGATIVE); URINE NITRITE NEGATIVE (NEGATIVE); URINE PROTEIN 2+ (NEGATIVE)
[2018-06-17 21:02] LABS: EPI CELLS RARE /HPF (FEW); URINE HYALINE CAST 1 /lpf; URINE MUCUS RARE
--- NOTE | 2018-06-17 21:20 | PDOC ---
Attending Attestation - Resident Resident Name: AsaelKhoi - ED Attending Attestation I have performed the following: I have examined & evaluated the patient, The case was reviewed & discussed with the resident, I agree w/resident's findings & plan, Exceptions are as noted - HPI HPI: 06/17/18 21:17 72 yo male needs a needs picc line for treament of osteomyelitis -Dr Abraham ordered initial antibiotics -pt is followed at our wound center and Dr Suarez requested admission - Physicial Exam PE: 06/17/18 21:20 thin 72 yo male who left AMA yesterday and now returns for admission head ncat neck supple lungs cta b/l cvs [id number] abd nontender ext left foot infection neuro axox3,ambulatory psych anxious - Medical Decision Making 06/17/18 21:27 admit for PICC, will start IV antibiotics L foot cellulitis
--- NOTE | 2018-06-17 21:38 | PN ---
Teaching Attending Note Name of Resident: Liz Sharma ATTENDING PHYSICIAN STATEMENT I saw and evaluated the patient. I reviewed the resident's note and discussed the case with the resident. I agree with the resident's findings and plan as documented. SUBJECTIVE: Patient is a 72 year old man with history of pqv-sorzdqc-jnymrecgd diabetes, CAD s/p stent, Glaucoma, right nephrectomy for kidney Ca, Bladder Ca, Lung Ca ( RT) with lobectomy, depression, gout, alcohol abuse and left big toe osteomyelitis. Sent to the ER from [facility] for placement of PICC line to treat MSSA osteomyelitis of left big toe. Denies fever or chills. Recently signed out AMA from [facility]. Reports feeling depressed lately but denies suicidal or homicidal ideation. OBJECTIVE: Alert Vital Signs Period Temp Pulse Resp BP Sys/Delgado Pulse Ox Last 24 Hr 97 F 66 18 117/62 99 HEENT: No Jaundice, eye redness or discharge, PERRLA, EOMI. Normocephalic, atraumatic. External ears are normal and hearing is grossly intact. No nasal discharge. Neck: Supple, nontender. No palpable adenopathy or thyromegaly. No JVD Chest: Good effort. Clear to auscultation and percussion. Heart: Regular. No S3, rub or murmur Abdomen: Not distended, soft, nontender and no HSM. No rebound or guarding. Normoactive bowel sounds. Ext: Peripheral pulses intact. No leg edema. Left big toe wound dressed. Skin: Warm and dry. No petechiae, rash or ecchymosis. Neuro: Alert. Oriented x3. CN 2-12 grossly intact. Sensation grossly intact in all four extremities and DTR are symmetric. Current Medications Generic Name Dose Route Start Last Admin Trade Name Freq PRN Reason Stop Dose Admin Cefazolin Sodium/Dextrose 2 gm in 50 mls @ 100 mls/hr 06/17/18 18:45 19:07 Ancef 2 Gm Premixed Ivpb - IVPB 100 mls/hr [id number] KEVEN Administration Home Medications Medication Instructions Recorded Allopurinol 300 mg PO DAILY 10/12/16 Amlodipine Besylate [Norvasc -] 5 mg PO DAILY 10/12/16 Aspirin [ASA -] 81 mg PO DAILY 10/12/16 Atorvastatin Ca [Lipitor] 40 mg PO HS 10/12/16 Calcium Citrate/Vitamin D3 1 each PO DAILY 10/12/16 [Calcium Citrate - Vit D Caplet] Cholecalciferol (Vitamin D3) 2,000 unit PO DAILY 10/12/16 [Vitamin D3] Clopidogrel Bisulfate [Clopidogrel] 75 mg PO DAILY 10/12/16 Cyanocobalamin [Vitamin B12 -] 1,000 mcg PO DAILY 10/12/16 Fluoxetine HCl 40 mg PO DAILY 10/12/16 Glipizide [Glipizide ER] 10 mg PO DAILY 10/12/16 Insulin Detemir [Levemir Flextouch] 10 unit SQ HS 10/12/16 Liraglutide [Victoza -] 1.2 mg SQ DAILY@0700 10/12/16 Losartan Potassium 50 mg PO DAILY 10/12/16 Loteprednol Etabonate [Lotemax] 10 ml OD DAILY 10/12/16 Methylphenidate HCl 20 mg PO ASDIR PRN 10/12/16 Metoprolol Succinate [Toprol Xl -] 12.5 mg PO DAILY 10/12/16 Ropinirole HCl [Requip] 3 mg PO TID PRN 10/12/16 Vardenafil HCl [Levitra] 20 mg PO PRN PRN 10/12/16 Abnormal Lab Results 06/17/18 06/17/18 06/17/18 18:51 18:51 18:51 Neutrophils % 84.7 H Lymphocytes % 6.2 L PT with INR 14.40 H INR 1.27 H BUN 36 H Creatinine 2.0 H Random Glucose 175 H Alkaline Phosphatase 192 H Total Protein 6.3 L Albumin 2.6 L Urine Protein 06/17/18 20:50 Neutrophils % Lymphocytes % PT with INR INR BUN Creatinine Random Glucose Alkaline Phosphatase Total Protein Albumin Urine Protein 2+ H ASSESSMENT AND PLAN: 1. Left big toe osteomyelitis - Get PICC line and continue Ancef 2 gm IV q 8 hours. Arrange for outpatient care at SNF? Consult ID and Wound Care. 2. Hypoalbuminemia - Possibly due to combined effects of malnutrition, proteinuria and inflammation associated with comorbid chronic conditions. Will ensure adequate dietary protein intake and also consult girl friday. 3. DM - For now, we will hold the home diabetes drugs and implement sliding scale insulin regimen. Provide comprehensive diabetes care with patient teaching and counseling about the importance of euglycemia, eye care and foot care. 4. CKD - Possibly diabetic nephropathy. Also has solitary kidney. Will consult nephrology and avoid nephrotoxic agents such as NSAIDS, aminoglycosides, contrast dyes and certain Alternative medicine products. 5. Alcohol abuse - Implement [facility] alcohol withdrawal protocol and fall precautions. Treat with thiamine and folic acid and monitor electrolytes (Ca,Mg, K,P). [employer] patient about abstaining from alcohol and refer to alcohol detox upon discharge. 6. DVT prophylaxis - Heparin 5000u sq tid. 7. Advance directives - Full code
--- NOTE | 2018-06-17 21:39 | HP ---
CHIEF COMPLAINT: L toe pain, swelling, redness found to have +osteomyelitis on MRI PCP: HISTORY OF PRESENT ILLNESS: 72 y/o male with PMH of NIDDM, CAD s/p stents, kidney cancer, bladder ca, lung ca X2, glaucoma, gout, presented originally to [facility] a week ago with L toe pain. States he thought it was his gout flare-up but the pain got worse so he went to [facility] where he was found to have osteomyeltitis confirmed on MRI. He underwent an I and D on the and cultures shown to be growing MSSA. patient was started on vanc/zosyn then he signed out AMA two days ago. He followed up at wound care today who then sent him here to have PICC line placement for 6 weeks of IV antibiotics. ER course was notable for: (1)Cr was eleavted to 2.0 (2) (3) Recent Travel:none PAST MEDICAL HISTORY:see HPI PAST SURGICAL HISTORY:R nephrectomy, LL lobe resection, CAD s/p stents Social History: Smoking: had an extensive smoking history, quit 30 years go Alcohol: drinks 1-2 drinks daily for many years Drugs: denies Family History: CAD on fathers side Allergies No Known Allergies Allergy (Verified 06/17/18 17:28) HOME MEDICATIONS: Home Medications Medication Instructions Recorded Allopurinol 300 mg PO DAILY 10/12/16 Amlodipine Besylate [Norvasc -] 5 mg PO DAILY 10/12/16 Aspirin [ASA -] 81 mg PO DAILY 10/12/16 Atorvastatin Ca [Lipitor] 40 mg PO HS 10/12/16 Calcium Citrate/Vitamin D3 1 each PO DAILY 10/12/16 [Calcium Citrate - Vit D Caplet] Cholecalciferol (Vitamin D3) 2,000 unit PO DAILY 10/12/16 [Vitamin D3] Clopidogrel Bisulfate [Clopidogrel] 75 mg PO DAILY 10/12/16 Cyanocobalamin [Vitamin B12 -] 1,000 mcg PO DAILY 10/12/16 Fluoxetine HCl 40 mg PO DAILY 10/12/16 Glipizide [Glipizide ER] 10 mg PO DAILY 10/12/16 Insulin Detemir [Levemir Flextouch] 10 unit SQ HS 10/12/16 Liraglutide [Victoza -] 1.2 mg SQ DAILY@0700 10/12/16 Losartan Potassium 50 mg PO DAILY 10/12/16 Loteprednol Etabonate [Lotemax] 10 ml OD DAILY 10/12/16 Methylphenidate HCl 20 mg PO ASDIR PRN 10/12/16 Metoprolol Succinate [Toprol Xl -] 12.5 mg PO DAILY 10/12/16 Ropinirole HCl [Requip] 3 mg PO TID PRN 10/12/16 Vardenafil HCl [Levitra] 20 mg PO PRN PRN 10/12/16 REVIEW OF SYSTEMS CONSTITUTIONAL: Absent: fever, chills, diaphoresis, generalized weakness, malaise, loss of appetite, weight change HEENT: Absent: rhinorrhea, nasal congestion, throat pain, throat swelling, difficulty swallowing, mouth swelling, ear pain, eye pain, visual changes CARDIOVASCULAR: Absent: chest pain, syncope, palpitations, irregular heart rate, lightheadedness , peripheral edema RESPIRATORY: Absent: cough, shortness of breath, dyspnea with exertion, orthopnea, wheezing, stridor, hemoptysis GASTROINTESTINAL: Absent: abdominal pain, abdominal distension, nausea, vomiting, diarrhea, constipation, melena, hematochezia GENITOURINARY: Absent: dysuria, frequency, urgency, hesitancy, hematuria, flank pain, genital pain MUSCULOSKELETAL: Present: Left Toe Pain Absent: myalgia, arthralgia, joint swelling, back pain, neck pain SKIN: Absent: rash, itching, pallor HEMATOLOGIC/IMMUNOLOGIC: Absent: easy bleeding, easy bruising, lymphadenopathy, frequent infections ENDOCRINE: Absent: unexplained weight gain, unexplained weight loss, heat intolerance, cold intolerance NEUROLOGIC: Absent: headache, focal weakness or paresthesias, dizziness, unsteady gait, seizure, mental status changes, bladder or bowel incontinence PSYCHIATRIC: Absent: anxiety, depression, suicidal or homicidal ideation, hallucinations. PHYSICAL EXAMINATION Vital Signs - 24 hr 06/17/18 17:25 Temperature 97 F L Pulse Rate 66 Respiratory 18 Rate Blood Pressure 117/62 O2 Sat by Pulse 99 Oximetry (%) GENERAL: Awake, alert, and fully oriented, in no acute distress. NECK: no JVD appreciated LUNGS: Breath sounds equal, clear to auscultation bilaterally. No wheezes, and no crackles. No accessory muscle use. HEART: Regular rate and rhythm, normal S1 and S2 without murmur, rub or gallop. ABDOMEN: Soft, nontender, not distended, normoactive bowel sounds, no guarding, no rebound, no masses. No hepatomegaly or splenomegaly. MUSCULOSKELETAL: Left toe dressing EXTREMITIES: warm, well perfused; no clubbing/cyanosis; no LE edema NEUROLOGICAL: Cranial nerves II-XII intact. Normal speech. Normal gait. PSYCHIATRIC: Cooperative. Good eye contact. Appropriate mood and affect. SKIN: Warm, dry, normal turgor, no rashes or lesions noted, normal capillary refill. Laboratory Results - last 24 hr 06/17/18 06/17/18 06/17/18 18:51 18:51 18:51 WBC 9.1 RBC 4.46 Hgb 13.7 Hct 41.0 MCV 91.9 MCH 30.8 MCHC 33.4 RDW 13.6 Plt Count 427 MPV 8.0 Absolute Neuts (auto) 7.7 Neutrophils % 84.7 H Lymphocytes % 6.2 L Monocytes % 7.6 Eosinophils % 0.5 Basophils % 1.0 Nucleated RBC % 0 PT with INR 14.40 H INR 1.27 H Sodium 136 Potassium 5.0 Chloride 100 Carbon Dioxide 27 Anion Gap 9 BUN 36 H Creatinine 2.0 H Creat Clearance w eGFR 33.10 Random Glucose 175 H Calcium 9.1 Total Bilirubin 0.8 AST 35 ALT 72 Alkaline Phosphatase 192 H Total Protein 6.3 L Albumin 2.6 L Urine Color Urine Appearance Urine pH Ur Specific [place] Urine Protein Urine Glucose (UA) Urine Ketones Urine Blood Urine Nitrite Urine Bilirubin Urine Urobilinogen Ur Leukocyte Esterase Urine WBC (Auto) Urine RBC (Auto) Ur Epithelial Cells Hyaline Casts Urine Mucus 06/17/18 20:50 WBC RBC Hgb Hct MCV MCH MCHC RDW Plt Count MPV Absolute Neuts (auto) Neutrophils % Lymphocytes % Monocytes % Eosinophils % Basophils % Nucleated RBC % PT with INR INR Sodium Potassium Chloride Carbon Dioxide Anion Gap BUN Creatinine Creat Clearance w eGFR Random Glucose Calcium Total Bilirubin AST ALT Alkaline Phosphatase Total Protein Albumin Urine Color Felipa Urine Appearance Slcloudy Urine pH 5.0 Ur Specific [place] 1.025 Urine Protein 2+ H Urine Glucose (UA) Negative Urine Ketones Negative Urine Blood Negative Urine Nitrite Negative Urine Bilirubin Negative Urine Urobilinogen 2.0 Ur Leukocyte Esterase Negative Urine WBC (Auto) 2 Urine RBC (Auto) 2 Ur Epithelial Cells Rare Hyaline Casts 1 Urine Mucus Rare ASSESSMENT/PLAN: 72 y/o male with PMH of NIDDM, CAD s/p stents, kidney cancer, bladder ca, lung ca X2, glaucoma, gout, presented originally to [facility] a week ago with L toe pain fond to have osteomyelitis confirmed on MRI, is growing MSSA confirmed on wound cultures. OSTEOMYELITIS: patient found to have osteomyeltities on MRI and growing MSSA -PICC line placement for IV abx -starting ancef 2g IV q8 -ID consult -monitor for fevers and systemic symptoms CKD: pateints Cr increased from 1.4 to 2.0 in a week possibly 2/2 diabetes -nephrology consult -avoid nephrotoxic drugs Diabetes: holding patients diabetes medications for the time being and start ISS -monitor BGM's -monitor symptoms of hypoglycemia Alcohol Abuse: patient has chronic alcohol abuse history -monitor electrolytes -alcohol abuse counseling DVT prophylaxis: heparin SQ TID Problem List - Problem (1) Cellulitis of foot Code(s): L03.119 - CELLULITIS OF UNSPECIFIED PART OF LIMB (2) Depression Code(s): F32.9 - MAJOR DEPRESSIVE DISORDER, SINGLE EPISODE, UNSPECIFIED (3) Diabetes mellitus Code(s): E11.9 - TYPE 2 DIABETES MELLITUS WITHOUT COMPLICATIONS Visit type - Emergency Visit Emergency Visit: Yes Care time: The patient presented to the Emergency Department on the above date and was hospitalized for further evaluation of their emergent condition. - New Patient This patient is new to me today: Yes Date on this admission: 06/17/18 - Critical Care Critical Care patient: No Hospitalist Screening - Colonoscopy Questionnaire Colonoscopy Questionnaire: Colonoscopy Questionnaire - Patient: 50 - 75 years old and never had a screening colonoscopy: Unknown History of colon or rectal polyps, or CA: Unknown History of IBD, Crohn's disease or UC: Unknown History of abdominal radiation therapy as a child: Unknown - Relative: 1 with colon or rectal CA, or polyps at age 60 or younger: Unknown Colon or rectal CA diagnosed at age 45 or younger: Unknown Multiple relatives with colon or rectal CA: Unknown - Outcome: Screening Result: Negative Screen
[2018-06-17] MEDS ORDERED: HEPARIN NA (PORCINE) 5,000 UNITS/ML 1ML VIAL ONE (22:04)
[2018-06-17] MEDS: HEPARIN NA (PORCINE) 5,000 UNITS/ML 1ML VIAL SQ SCH (22:18)
[2018-06-17] MEDS: INSULIN SLIDING SCALE (NOVOLOG) 1 VIAL SQ SCH (22:21)
[2018-06-17] MEDS ORDERED: INSULIN (NOVOLOG) ASPART 100 UNITS/ML 10ML VIAL ONE (22:21)
[2018-06-18] MEDS: CEFAZOLIN 2 GM/D5W 2 GM/50 ML ML IVPB SCH (01:31)
[2018-06-18 02:16] VITALS: BMI 23.2
[2018-06-18] MEDS ORDERED: INSULIN (NOVOLOG) ASPART 100 UNITS/ML 10ML VIAL ONE (05:12)
[2018-06-18] MEDS ORDERED: PT OWN MED DRAWER 7, Y5N ONE ×2 (05:12→07:00)
[2018-06-18] MEDS: HEPARIN NA (PORCINE) 5,000 UNITS/ML 1ML VIAL SQ SCH (06:30)
[2018-06-18] MEDS: INSULIN SLIDING SCALE (NOVOLOG) 1 VIAL SQ SCH ×2 (06:30→12:17)
[2018-06-18 06:52] VITALS: BP 132/77; PULSE 54; TEMP 98.2
[2018-06-18 07:00] LABS: HEMATOCRIT 38.2 % (35.4-49); HEMOGLOBIN 12.5 GM/dL (11.7-16.9); MCH 30.6 pg (25.7-33.7); MCHC 32.8 g/dl (32.0-35.9); MEAN CELL VOLUME 93.3 fl (80-96); PLATELET COUNT 340 K/MM3 (134-434); RBC 4.09 M/mm3 (4.00-5.60); RDW 13.6 % (11.9-15.9); WHITE BLOOD COUNT 7.4 K/mm3 (4.0-10.0)
[2018-06-18 07:33] LABS: ANION GAP 7 MMOL/L (8-16); BLOOD UREA NITROGEN 38 mg/dL (7-18); CHLORIDE 102 mmol/L (98-107); CO2 28 mmol/L (21-32); CREATININE 1.8 mg/dL (0.7-1.3); GLUCOSE,RANDOM 148 mg/dL (74-106); MAGNESIUM 2.2 mg/dL (1.8-2.4); PHOSPHOROUS 3.1 mg/dL (2.5-4.9); POTASSIUM 4.8 mmol/L (3.5-5.1); SODIUM 137 mmol/L (136-145)
[2018-06-18 08:09] LABS: INR 1.19 (0.83-1.09); PROTHROMBIN TIME (PATIENT) 13.4 SEC (9.7-13.0)
[2018-06-18] MEDS ORDERED: PICC LINE 8 ML FLUSH PROTOCOL IVPUSH PRN (09:10)
--- NOTE | 2018-06-18 09:24 | PN ---
Progress Note (short form) - Note Progress Note: ID Consult dictated Osteomyelitis L great toe + Wound c/s MSSA IDDM Azotemia Advise PICC for outpatient antibiotics: Ceftriaxone 2gm IVPB q24h x 5 weeks
[2018-06-18] MEDS ORDERED: CEFTRIAXONE 2 GM in DEXTROSE 5%-WATER 100 ML IVPB SCH (10:00)
--- NOTE | 2018-06-18 10:02 | CONS ---
DATE OF CONSULTATION: DATE OF DICTATION: 06/18/2018 The patient is a 72-year-old insulin-dependent diabetic who is evaluated for osteomyelitis of the left great toe. The patient was hospitalized at [facility] from June 09 through June 16. He had presented with cellulitis of the left great toe. Imaging studies showed osteomyelitis of the distal phalanx of the 1st toe. A bedside aspiration was performed by podiatry, yielding purulent fluid. A wound culture grew methicillin-sensitive Staphylococcus aureus. He was empirically treated with vancomycin and Zosyn pending cultures. Arrangements were being made for a PICC line for IV antibiotic therapy as an outpatient for osteomyelitis; however, the patient signed out against medical advice. He returned for hyperbaric oxygen treatment and for podiatry followup. He was advised readmission for insertion of a PICC line for long-term IV antibiotic therapy. At the present time he has no complaints of left foot pain. He reports decreased swelling and erythema of the left great toe. PAST MEDICAL HISTORY: Positive for insulin-dependent diabetes mellitus, hypertension, hyperlipidemia, coronary artery disease, glaucoma, lung cancer. PAST SURGICAL HISTORY: Status post left lung lobectomy, right nephrectomy, coronary artery bypass. ALLERGIES: No known allergies. MEDICATIONS: Allopurinol, Norvasc, aspirin, Lipitor, Plavix, glipizide, Levemir, losartan, Toprol. SOCIAL HISTORY: Lives at home. He is a former smoker, positive history of daily alcohol use as per chart. REVIEW OF SYSTEMS: Neurologic: No loss of consciousness, seizure activity, focal weakness. Cardiac: Negative chest pain or palpitations. Respiratory: Negative cough or sputum production. Gastrointestinal: Negative vomiting or diarrhea. Genitourinary: Negative for urinary tract infection. LABORATORY DATA: White count 7.4, hematocrit 38.2, platelet count 340. BUN 38, creatinine 1.8. Urinalysis: Two white cells. Sedimentation rate 106. C-reactive protein 23.8. PHYSICAL EXAMINATION: General: He is awake and alert. He is in no acute distress, not acutely toxic appearing. Vital Signs: Temperature 98.2, blood pressure 132/77, pulse 54, regular. Respiration 20 per minute. HEENT: Sclerae are anicteric. Cardiovascular: Heart sounds S1, S2. Lungs: Clear. Abdomen: Soft and nontender. Extremities: Examination of the left lower extremity, there is swelling and erythema present of the left great toe distally. There is tenderness to palpation. No crepitus or fluctuance. No lymphangitic streaking. IMPRESSION: 1. Cellulitis/osteomyelitis of the left first toe. 2. Positive wound culture methicillin-sensitive Staphylococcus aureus. 3. Insulin-dependent diabetes mellitus. 4. Azotemia. Will require peripherally inserted central catheter line for intravenous antibiotic therapy. Suggest ceftriaxone 2 g intravenous piggyback daily to complete a 6-week course of therapy. Patient has already received a 1-week course in the hospital. Continue local wound care, podiatry followup. Thank you for the kind referral. MIGDALIA DONG M.D. [id number]
--- NOTE | 2018-06-18 10:47 | DS ---
Physical Exam: SUBJECTIVE: Patient seen and examined in the solarium. Denies pain or discomfort. Seen by renal, but pt refusing follow up after discharge. Wants to see all his own physicians (renal, cardiology). OBJECTIVE: Patient for a tunneled catheter then can be discharged home will need Ceftriaxone 2 grams via central line x 5 weeks. weekly labs to be sent to Dr. Toney Vital Signs Period Temp Pulse Resp BP Sys/Delgado Pulse Ox Last 24 Hr 97 F-98.9 F 54-66 17-20 109-140/62-78 99-100 PHYSICAL EXAMGENERAL: The patient is awake, alert, and fully oriented, in no acute distress, disheveled HEAD: Normal with no signs of trauma. EYES: PERRL, extraocular movements intact, sclera anicteric, conjunctiva clear. No ptosis. ENT: Ears normal, nares patent, oropharynx clear without exudates, moist mucous membranes. NECK: Trachea midline, full range of motion, supple. LUNGS: Breath sounds equal, left lung diminished, right lung clear HEART: Regular rate and rhythm, ABDOMEN: Soft, nontender, nondistended, normoactive bowel sounds NEUROLOGICAL: Normal speech, gait steady PSYCH: Normal mood, normal affect. SKIN: cellulitis of left great toe, wrapped.dressing intact. LABS Laboratory Results - last 24 hr 06/17/18 06/17/18 06/17/18 18:51 18:51 18:51 WBC 9.1 RBC 4.46 Hgb 13.7 Hct 41.0 MCV 91.9 MCH 30.8 MCHC 33.4 RDW 13.6 Plt Count 427 MPV 8.0 Absolute Neuts (auto) 7.7 Neutrophils % 84.7 H Lymphocytes % 6.2 L Monocytes % 7.6 Eosinophils % 0.5 Basophils % 1.0 Nucleated RBC % 0 PT with INR 14.40 H INR 1.27 H Sodium 136 Potassium 5.0 Chloride 100 Carbon Dioxide 27 Anion Gap 9 BUN 36 H Creatinine 2.0 H Creat Clearance w eGFR 33.10 POC Glucometer Random Glucose 175 H Calcium 9.1 Phosphorus Magnesium Total Bilirubin 0.8 AST 35 ALT 72 Alkaline Phosphatase 192 H Total Protein 6.3 L Albumin 2.6 L Urine Color Urine Appearance Urine pH Ur Specific [place] Urine Protein Urine Glucose (UA) Urine Ketones Urine Blood Urine Nitrite Urine Bilirubin Urine Urobilinogen Ur Leukocyte Esterase Urine WBC (Auto) Urine RBC (Auto) Ur Epithelial Cells Hyaline Casts Urine Mucus 06/17/18 06/18/18 06/18/18 20:50 06:00 06:00 WBC 7.4 RBC 4.09 Hgb 12.5 Hct 38.2 MCV 93.3 MCH 30.6 MCHC 32.8 RDW 13.6 Plt Count 340 D MPV 8.0 Absolute Neuts (auto) Neutrophils % Lymphocytes % Monocytes % Eosinophils % Basophils % Nucleated RBC % PT with INR 13.40 H INR 1.19 H Sodium Potassium Chloride Carbon Dioxide Anion Gap BUN Creatinine Creat Clearance w eGFR POC Glucometer Random Glucose Calcium Phosphorus Magnesium Total Bilirubin AST ALT Alkaline Phosphatase Total Protein Albumin Urine Color Fel[place] Urine Appearance Slcloudy Urine pH 5.0 Ur Specific [place] 1.025 Urine Protein 2+ H Urine Glucose (UA) Negative Urine Ketones Negative Urine Blood Negative Urine Nitrite Negative Urine Bilirubin Negative Urine Urobilinogen 2.0 Ur Leukocyte Esterase Negative Urine WBC (Auto) 2 Urine RBC (Auto) 2 Ur Epithelial Cells Rare Hyaline Casts 1 Urine Mucus Rare 06/18/18 06/18/18 06:00 06:28 WBC RBC Hgb Hct MCV MCH MCHC RDW Plt Count MPV Absolute Neuts (auto) Neutrophils % Lymphocytes % Monocytes % Eosinophils % Basophils % Nucleated RBC % PT with INR INR Sodium 137 Potassium 4.8 Chloride 102 Carbon Dioxide 28 Anion Gap 7 L BUN 38 H Creatinine 1.8 H Creat Clearance w eGFR 37.38 POC Glucometer 131 Random Glucose 148 H Calcium 9.0 Phosphorus 3.1 Magnesium 2.2 Total Bilirubin AST ALT Alkaline Phosphatase Total Protein Albumin Urine Color Urine Appearance Urine pH Ur Specific [place] Urine Protein Urine Glucose (UA) Urine Ketones Urine Blood Urine Nitrite Urine Bilirubin Urine Urobilinogen Ur Leukocyte Esterase Urine WBC (Auto) Urine RBC (Auto) Ur Epithelial Cells Hyaline Casts Urine Mucus HOSPITAL COURSE: Date of Admission:06/17/18 Date of Discharge: 06/18/18 Imaging 06/09 CT: bone destruction first distal phalanx with small adjacent bone fragments, significant swelling consistent with infection v. osteo 06/10 MRI: +osteo ASSESSMENT/PLAN Patient is a 72 year-old male with a significant past medical history of hypertension, CAD s/p stent, diabetes, lung cancer s/p RT and gout. Patient was admitted on 06/09/18 at [facility] for left great toe cellulitis with osteomyelitis, patient left AMA 2 days ago before PICC placed for long term care social worker antibiotics. Returns on 06/17 to wound clinic and sent to the floor for PICC line placement. Pt can be discharged after central line placed. ID: Left great toe cellulitis/osteomyelitis: Patient is s/p I&D. Blood cultures negative. Central line today for 5 weeks of Ceftriaxone 2 grams. wound care at clinic with hyperbaric therapy. MS: Gout history, uric acid wnl, on allopurinol Renal: DEISY: s/p right nephrectomy and left non obstructing renal calculus. Unknown baseline. Outpatient renal follow up with his private physicians. Endocrine: Diabetes: stable BGMs. continue home meds and monitor, pcp follow up. Card: CAD:On Lipitor,Plavix, ASA Htn: toprox xl daily, BP controlled Psyche: Depression: on prozac discharge after central line placed. Minutes to complete discharge: 45 Discharge Summary Reason For Visit: OSTEOMYELITIS Current Active Problems Wound of foot (Acute) - Instructions Referrals: ON STAFF,NOT [Primary Care Provider] - - Home Medications Comprehensive Discharge Medication List: Ambulatory Orders Allopurinol 300 mg PO DAILY 10/12/16 Amlodipine Besylate [Norvasc -] 5 mg PO DAILY 10/12/16 Aspirin [ASA -] 81 mg PO DAILY 10/12/16 Atorvastatin Ca [Lipitor] 40 mg PO HS 10/12/16 Calcium Citrate/Vitamin D3 [Calcium Citrate - Vit D Caplet] 1 each PO DAILY Cholecalciferol (Vitamin D3) [Vitamin D3] 2,000 unit PO DAILY 10/12/16 Clopidogrel Bisulfate [Clopidogrel] 75 mg PO DAILY 10/12/16 Cyanocobalamin [Vitamin B12 -] 1,000 mcg PO DAILY 10/12/16 Fluoxetine HCl 40 mg PO DAILY 10/12/16 Glipizide [Glipizide ER] 10 mg PO DAILY 10/12/16 Insulin Detemir [Levemir Flextouch] 10 unit SQ HS 10/12/16 Liraglutide [Victoza -] 1.2 mg SQ DAILY@0700 10/12/16 Losartan Potassium 50 mg PO DAILY 10/12/16 Loteprednol Etabonate [Lotemax] 10 ml OD DAILY 10/12/16 Methylphenidate HCl 20 mg PO ASDIR PRN 10/12/16 Metoprolol Succinate [Toprol Xl -] 12.5 mg PO DAILY 10/12/16 Ropinirole HCl [Requip] 3 mg PO TID PRN 10/12/16 Vardenafil HCl [Levitra] 20 mg PO PRN PRN 10/12/16 This patient is new to me today: No Emergency Visit: Yes ED Registration Date: 06/17/18 Care time: The patient presented to the Emergency Department on the above date and was hospitalized for further evaluation of their emergent condition. Critical Care patient: No - Discharge Referral Referred to [facility] Med P.C.: No
[2018-06-18] MEDS ORDERED: DEXTROSE 5%-WATER 100 ML IVPB ONE (11:05)
--- NOTE | 2018-06-18 12:00 | CONSULT ---
Consult Consult Specialty:: Nephrology Reason for Consultation:: CKD - History of Present Illness Chief Complaint: sent in for PICC line placement History of Present Illness: Pt is a 72 year old male with pmhx of CKD, DM, CAD, glaucoma, right kidney cancer, s/p right nephrectomy, and lung cancer who was sent in for a PICC. He was found to have elevated creatinine and I was called to evaluate him. He says he has history of CKD and follows with a tunnel elastic operator chainstitch in [place]. He denies dysuria or hematuria. He says that his director loan is in the 2 range but does not remember the exact number. He does not want any workup or testing done here. He says he will follow with his tunnel elastic operator chainstitch. He denies shortness of breath or lower ext edema. - History Source History Provided By: Patient - Past Medical History Cardio/Vascular: Yes: CAD, HTN, Hyperlipdemia Renal/: Yes: Renal Inusuff, Cancer Infectious Disease: Yes: Other (osteo) - Past Surgical History Past Surgical History: Yes: Nephrectomy - Alcohol/Substance Use Hx Alcohol Use: Yes (daily) - Smoking History Smoking history: Former smoker Have you smoked in the past 12 months: No If you are a former smoker, when did you quit?: 30 YRS AGO Home Medications - Allergies Allergies/Adverse Reactions: Allergies Allergy/AdvReac Type Severity Reaction Status Date / Time No Known Allergies Allergy Verified 06/17/18 17:28 - Home Medications Home Medications: Ambulatory Orders Allopurinol 300 mg PO DAILY 10/12/16 Amlodipine Besylate [Norvasc -] 5 mg PO DAILY 10/12/16 Aspirin [ASA -] 81 mg PO DAILY 10/12/16 Atorvastatin Ca [Lipitor] 40 mg PO HS 10/12/16 Calcium Citrate/Vitamin D3 [Calcium Citrate - Vit D Caplet] 1 each PO DAILY Cholecalciferol (Vitamin D3) [Vitamin D3] 2,000 unit PO DAILY 10/12/16 Clopidogrel Bisulfate [Clopidogrel] 75 mg PO DAILY 10/12/16 Cyanocobalamin [Vitamin B12 -] 1,000 mcg PO DAILY 10/12/16 Fluoxetine HCl 40 mg PO DAILY 10/12/16 Glipizide [Glipizide ER] 10 mg PO DAILY 10/12/16 Insulin Detemir [Levemir Flextouch] 10 unit SQ HS 10/12/16 Liraglutide [Victoza -] 1.2 mg SQ DAILY@0700 10/12/16 Losartan Potassium 50 mg PO DAILY 10/12/16 Loteprednol Etabonate [Lotemax] 10 ml OD DAILY 10/12/16 Methylphenidate HCl 20 mg PO ASDIR PRN 10/12/16 Metoprolol Succinate [Toprol XL -] 12.5 mg PO DAILY 10/12/16 Ropinirole HCl [Requip -] 3 mg PO TID PRN 10/12/16 Vardenafil HCl [Levitra] 20 mg PO PRN PRN 10/12/16 Ceftriaxone [Rocephin -] 2 gm IVPB DAILY vial 06/18/18 Picc Line Flush [Picc Line Flush -] 8 ml IVPUSH PRN PRN ml 06/18/18 Family Disease History - Family Disease History Family History: Denies Review of Systems - Review of Systems Constitutional: reports: No Symptoms Eyes: reports: No Symptoms HENT: reports: No Symptoms Neck: reports: No Symptoms Cardiovascular: reports: No Symptoms Respiratory: reports: No Symptoms Gastrointestinal: reports: No Symptoms Genitourinary: reports: No Symptoms Musculoskeletal: reports: Other (osteo of foot) Integumentary: reports: No Symptoms Neurological: reports: No Symptoms Endocrine: reports: No Symptoms Hematology/Lymphatic: reports: No Symptoms Psychiatric: reports: No Symptoms Physical Exam Vital Signs: Vital Signs Temperature 98.2 F 06/18/18 06:51 Pulse Rate 54 L 06/18/18 06:51 Respiratory Rate 20 06/18/18 06:51 Blood Pressure 132/77 06/18/18 06:51 O2 Sat by Pulse Oximetry (%) 100 06/17/18 21:02 Constitutional: Yes: Anxious Eyes: Yes: Conjunctiva Clear HENT: Yes: Atraumatic Neck: Yes: Supple Cardiovascular: Yes: Regular Rate and Rhythm, S1, S2 Respiratory: Yes: CTA Bilaterally Gastrointestinal: Yes: Soft Renal/: Yes: WNL Edema: No Neurological: Yes: Oriented Psychiatric: Yes: Oriented, Agitated Labs: CBC, BMP 06/18/18 06:00 06/18/18 06:00 Laboratory Tests 06/17/18 06/17/18 06/17/18 18:51 18:51 20:50 WBC 9.1 Hgb BUN 36 H Creatinine 2.0 H Urine Protein 2+ H Urine Blood Negative 06/18/18 06/18/18 06:00 06:00 WBC 7.4 Hgb 12.5 BUN 38 H Creatinine 1.8 H Urine Protein Urine Blood Problem List - Problems (1) CKD (chronic kidney disease) Code(s): N18.9 - CHRONIC KIDNEY DISEASE, UNSPECIFIED (2) Wound of foot Code(s): S91.309A - UNSPECIFIED OPEN WOUND, UNSPECIFIED FOOT, INITIAL ENCOUNTER (3) HTN (hypertension) Code(s): I10 - ESSENTIAL (PRIMARY) HYPERTENSION (4) Osteomyelitis Code(s): M86.9 - OSTEOMYELITIS, UNSPECIFIED Assessment/Plan Current Medications Generic Name Dose Route Start Last Admin Trade Name Freq PRN Reason Stop Dose Admin Heparin Sodium (Porcine) 5,000 unit 06/17/18 22:00 06/18/18 06:30 Heparin - SQ 5,000 unit TID KEVEN Administration IV Flush 8 ml 06/18/18 09:10 Picc Line Flush IVPUSH PRN PRN Protocol Ceftriaxone Sodium 2 gm/ 100 mls @ 200 mls/hr 06/18/18 10:00 06/18/18 11:14 Dextrose IVPB 200 mls/hr DAILY KEVEN Administration Protocol Insulin Aspart 1 vial 06/17/18 22:15 06/18/18 06:30 Novolog Vial Sliding Scale - SQ Not Given ACHS KEVEN Protocol Impression 1. CKD 2. osteo 3. CAD 4. renal cancer 5. lung cancer 6. DM Plan - pt will follow with his tunnel elastic operator chainstitch - unclear baseline director loan - pt says he is here for a PICC line - renal dose meds - per patient, director loan is about 2 - discussed with medical team Dr Garsia
== END 2018-06-18 15:48 | disposition home or self-care (01) ==
LOC: JER 17:20 → JERBED 21:02 → J5S 06-18 00:31
PROVIDERS: ADMIT Internal Medicine; ATTEND Nurse Practitioner Family
PROC: 02HV33Z Insertion of Infusion Device into Superior Vena Cava, Percutaneous Approach (ICD-10-PCS; principal; 2018-06-17)
PROC: B548ZZA Ultrasonography of Superior Vena Cava, Guidance (ICD-10-PCS; 2018-06-17)
PROC: 3E03329 Introduction of Other Anti-infective into Peripheral Vein, Percutaneous Approach (ICD-10-PCS; 2018-06-17)
PROC: 3E013VG Introduction of Insulin into Subcutaneous Tissue, Percutaneous Approach (ICD-10-PCS; 2018-06-17)
PROC: 3E013GC Introduction of Other Therapeutic Substance into Subcutaneous Tissue, Percutaneous Approach (ICD-10-PCS; 2018-06-17)
DX: M86.172 Other acute osteomyelitis, left ankle and foot (principal); L03.032 Cellulitis of left toe; B95.61 Methicillin susceptible Staphylococcus aureus infection as the cause of diseases classified elsewhere; E88.09 Other disorders of plasma-protein metabolism, not elsewhere classified; E11.22 Type 2 diabetes mellitus with diabetic chronic kidney disease; I12.9 Hypertensive chronic kidney disease with stage 1 through stage 4 chronic kidney disease, or unspecified chronic kidney disease; N18.9 Chronic kidney disease, unspecified; E78.5 Hyperlipidemia, unspecified; I25.10 Atherosclerotic heart disease of native coronary artery without angina pectoris; Z85.528 Personal history of other malignant neoplasm of kidney; Z85.118 Personal history of other malignant neoplasm of bronchus and lung; F10.10 Alcohol abuse, uncomplicated; H40.9 Unspecified glaucoma; R79.89 Other specified abnormal findings of blood chemistry; Z90.5 Acquired absence of kidney; M10.9 Gout, unspecified; F32.9 Major depressive disorder, single episode, unspecified; Z79.4 Long term (current) use of insulin; Z79.82 Long term (current) use of aspirin; Z79.84 Long term (current) use of oral hypoglycemic drugs; Z95.5 Presence of coronary angioplasty implant and graft; E11.51 Type 2 diabetes mellitus with diabetic peripheral angiopathy without gangrene; M86.672 Other chronic osteomyelitis, left ankle and foot
CPT/HCPCS: 10140; 15275; 36415; 36558; 36569; 77001-TC-FY; 80048; 80053; 81003; 81015; 82962; 83735; 84100; 85025; 85027; 85610; 87086; 96372; 96374; 96375; 99283-25; C1751; G0277; G0378; J1644; Q4172

== ENCOUNTER 2018-06-19 14:27 | Day surgery (SDC) | payer OTHER, MEDICARE ==
[~2018-06-19 14:27] MED LIST: CEFTRIAXONE 2 GM in SODIUM CHLORIDE 100 ML IVPB ONE
[2018-06-19 15:47] VITALS: TEMP 99
[2018-06-19 15:51] VITALS: BP 103/43; PULSE 63
== END 2018-06-19 15:40 | disposition home or self-care (01) ==
LOC: JASU-ENDO 14:27
PROVIDERS: ATTEND Internal Medicine
DX: M86.172 Other acute osteomyelitis, left ankle and foot (principal)
CPT/HCPCS: 82962; 96365; G0277

== ENCOUNTER 2018-06-20 13:52 | Day surgery (SDC) | payer OTHER, MEDICARE ==
[~2018-06-20 13:52] MED LIST changes: +CEFTRIAXONE 2 GM in DEXTROSE 5%-WATER 100 ML IVPB ONE; -CEFTRIAXONE 2 GM in SODIUM CHLORIDE 100 ML IVPB ONE
[2018-06-20 15:08] VITALS: TEMP 98.1
[2018-06-20 15:24] VITALS: BP 122/64; PULSE 71
== END 2018-06-20 15:15 | disposition home or self-care (01) ==
LOC: JINFUSION 13:52
PROVIDERS: ATTEND Internal Medicine
DX: M86.172 Other acute osteomyelitis, left ankle and foot (principal)
CPT/HCPCS: 82962; 96365

== ENCOUNTER 2018-06-21 16:31 | Day surgery (SDC) | payer OTHER, MEDICARE ==
[2018-06-21] MEDS ORDERED: CEFTRIAXONE 2 GM in SODIUM CHLORIDE 100 ML IVPB ONE (17:00)
[2018-06-21] MEDS ORDERED: SODIUM CHLORIDE 100 ML IVPB ONE (17:04)
[2018-06-21 17:21] VITALS: BP 143/69; PULSE 62; TEMP 98.1
== END 2018-06-21 17:55 | disposition home or self-care (01) ==
LOC: JINFUSION 16:31 → J7W 16:33 → JINFUSION 17:55
PROVIDERS: ATTEND Internal Medicine
DX: M86.172 Other acute osteomyelitis, left ankle and foot (principal)
CPT/HCPCS: 96365

== ENCOUNTER 2018-06-22 15:29 | Day surgery (SDC) | payer OTHER, MEDICARE ==
[2018-06-22] MEDS ORDERED: CEFTRIAXONE 2 GM in DEXTROSE 5%-WATER 100 ML IVPB ONE (16:00)
[2018-06-22] MEDS ORDERED: DEXTROSE 5%-WATER 100 ML IVPB ONE (16:03)
[2018-06-22 16:47] VITALS: BP 144/80; PULSE 71; TEMP 98
== END 2018-06-22 16:47 | disposition home or self-care (01) ==
LOC: JINFUSION 15:29 → J7W 15:30 → JINFUSION 16:47
PROVIDERS: ATTEND Internal Medicine
DX: M86.172 Other acute osteomyelitis, left ankle and foot (principal)
CPT/HCPCS: 96365

== ENCOUNTER 2018-06-23 14:30 | Day surgery (SDC) | payer OTHER, MEDICARE ==
[2018-06-23] MEDS ORDERED: CEFTRIAXONE 2 GM in SODIUM CHLORIDE 100 ML IVPB ONE (15:00)
[2018-06-23] MEDS ORDERED: SODIUM CHLORIDE 100 ML IVPB ONE (15:04)
[2018-06-23 15:15] VITALS: TEMP 98.9
[2018-06-23 15:50] VITALS: BP 146/74; PULSE 69
== END 2018-06-23 16:00 | disposition home or self-care (01) ==
LOC: JINFUSION 14:30 → J7W 14:31 → JINFUSION 16:00
PROVIDERS: ATTEND Internal Medicine
DX: M86.172 Other acute osteomyelitis, left ankle and foot (principal)
CPT/HCPCS: 96365

== ENCOUNTER 2018-06-24 13:43 | Day surgery (SDC) | payer OTHER, MEDICARE ==
[~2018-06-24 13:43] MED LIST changes: -CEFTRIAXONE 2 GM in DEXTROSE 5%-WATER 100 ML IVPB ONE; +SODIUM CHLORIDE 100 ML IVPB ONE
[2018-06-24] MEDS ORDERED: cefTRIAXone SODIUM 1 GM VIAL ONE (14:05)
[2018-06-24] MEDS ORDERED: CEFTRIAXONE 2 GM in DEXTROSE 5%-WATER 100 ML IVPB ONE (14:16)
[2018-06-24 14:33] VITALS: TEMP 98.2
[2018-06-24 15:24] VITALS: BP 137/70; PULSE 60
== END 2018-06-24 15:15 | disposition home or self-care (01) ==
LOC: JINFUSION 13:43
PROVIDERS: ATTEND Internal Medicine
DX: M86.172 Other acute osteomyelitis, left ankle and foot
CPT/HCPCS: 82962; 96365; G0277

== ENCOUNTER 2018-06-25 13:59 | Day surgery (SDC) | payer OTHER, MEDICARE ==
[~2018-06-25 13:59] MED LIST changes: +CEFTRIAXONE 2 GM in DEXTROSE 5%-WATER 100 ML IVPB ONE; -SODIUM CHLORIDE 100 ML IVPB ONE
[2018-06-25] MEDS ORDERED: cefTRIAXone SODIUM 1 GM VIAL ONE (14:24)
[2018-06-25 15:31] VITALS: BP 142/78; PULSE 76; TEMP 98.3
== END 2018-06-25 15:20 | disposition home or self-care (01) ==
LOC: JINFUSION 13:59
PROVIDERS: ATTEND Internal Medicine
DX: M86.172 Other acute osteomyelitis, left ankle and foot (principal)
CPT/HCPCS: 96365

== ENCOUNTER 2018-06-26 13:22 | Day surgery (SDC) | payer OTHER, MEDICARE ==
[2018-06-26] MEDS ORDERED: cefTRIAXone SODIUM 1 GM VIAL ONE (13:35)
[2018-06-26 14:24] VITALS: TEMP 98.2
[2018-06-26 15:06] VITALS: BP 112/60; PULSE 54
== END 2018-06-26 14:30 | disposition home or self-care (01) ==
LOC: JINFUSION 13:22
PROVIDERS: ATTEND Internal Medicine
DX: M86.172 Other acute osteomyelitis, left ankle and foot (principal)
CPT/HCPCS: 96365

== ENCOUNTER 2018-06-26 16:46 | Emergency (ER) | payer OTHER, MEDICARE ==
[2018-06-26 16:57] VITALS: BP 93/52; PULSE 48; BMI 23.3
--- NOTE | 2018-06-26 18:00 | PDOC ---
History of Present Illness - General Chief Complaint: Wound Stated Complaint: REF BY Time Seen by Provider: 06/26/18 17:15 - History of Present Illness Initial Comments: Selvin Davidson is a 73yo man with a PMH of DM, HTN, CAD s/p stent, lung CA x2, known L great toe osteomyelitis, currently under treatment with IV ceftriaxone via PICC and hyperbarics, who presents today reporting increased redness and swelling in his left foot yesterday after increased walking throughout the day. He states that his hyperbaric treatment was postponed until he was cleared for continued treatments. Mr Davidson was recently admitted to [facility] for the foot infection, left AMA, and has been following with wound clinic since 06/18. He reports that his foot was quite swollen several weeks ago and has gradually improved; his wound has also closed at this point. His swelling worsened acutely yesterday, and he was advised to go to the ED by wound clinic but refused at that time. He presented to the ED today because he was refused hyperbaric treatment. He reports that the swelling has nearly resolved at this point, with only some redness and slight swelling in his great toe. He denies any pain, open wounds, limitations to his mobility, or new sensory deficits. He has been receiving his antibiotics as scheduled. Past History - Past Medical History Allergies/Adverse Reactions: Allergies Allergy/AdvReac Type Severity Reaction Status Date / Time No Known Allergies Allergy Verified 06/26/18 16:53 Home Medications: Ambulatory Orders Allopurinol 300 mg PO DAILY 10/12/16 Amlodipine Besylate [Norvasc -] 5 mg PO DAILY 10/12/16 Aspirin [ASA -] 81 mg PO DAILY 10/12/16 Calcium Citrate/Vitamin D3 [Calcium Citrate - Vit D Caplet] 1 each PO DAILY Cholecalciferol (Vitamin D3) [Vitamin D3] 2,000 unit PO DAILY 10/12/16 Clopidogrel Bisulfate [Clopidogrel] 75 mg PO DAILY 10/12/16 Cyanocobalamin [Vitamin B12 -] 1,000 mcg PO DAILY 10/12/16 Fluoxetine HCl 40 mg PO DAILY 10/12/16 Glipizide [Glipizide ER] 10 mg PO DAILY 10/12/16 Insulin Detemir [Levemir Flextouch] 10 unit SQ HS 10/12/16 Liraglutide [Victoza -] 1.2 mg SQ DAILY@0700 10/12/16 Loteprednol Etabonate [Lotemax] 10 ml OD DAILY 10/12/16 Methylphenidate HCl 20 mg PO ASDIR PRN 10/12/16 Metoprolol Succinate [Toprol XL -] 12.5 mg PO DAILY 10/12/16 Ropinirole HCl [Requip -] 3 mg PO TID PRN 10/12/16 Vardenafil HCl [Levitra] 20 mg PO PRN PRN 10/12/16 Ceftriaxone [Rocephin -] 2 gm IVPB DAILY vial 06/18/18 Picc Line Flush [Picc Line Flush -] 8 ml IVPUSH PRN PRN ml 06/18/18 Anemia: No Asthma: No Cancer: Yes (LUNGx2 , 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 and kidney) Cardiac Disorders: Yes (STENT X1, Enlarged heart) CVA: No COPD: No CHF: No Dementia: No Diabetes: Yes (TYPE II) GI Disorders: Yes (perforated ulcer) HTN: Yes Hypercholesterolemia: Yes Liver Disease: No Seizures: No Thyroid Disease: No - Surgical History Abdominal Surgery: No Appendectomy: No Cardiac Surgery: Yes (stent) Cholecystectomy: No Lung Surgery: Yes (LEFT LOBECTOMY) Orthopedic Surgery: No - Suicide/Smoking/Psychosocial Hx Smoking History: Former smoker Have you smoked in the past 12 months: No If you are a former smoker, when did you quit?: 30 YRS AGO Information on smoking cessation initiated: No Hx Alcohol Use: Yes (daily) Drug/Substance Use Hx: No Substance Use Type: Alcohol Hx Substance Use Treatment: Yes Review of Systems - Review of Systems Comments:: General: No fevers, no chills, no weight or appetite change, no malaise HEENT: No changes in vision, no changes in hearing, no congestion, no sore throat CV: No chest pain, no palpitations, no LE edema Pulm: No SOB, no cough, no wheezing GI: No nausea or vomiting, no change in bowel habits, no melena : No frequency, no urgency, no dysuria Musc: No back pain, no recent injury. +h/o osteomyelitis Skin: No rash, no lesions, no erythema Endo: No excessive thirst, no heat/cold intolerance Heme: No unusual bruising or bleeding, no swollen glands Neuro: No syncope, no numbness/tingling, no focal weakness Psych: No recent change in mood, no SI or HI *Physical Exam - Vital Signs Last Vital Signs Temp Pulse Resp BP Pulse Ox 48 L 18 93/52 98 06/26/18 16:55 06/26/18 16:55 06/26/18 16:55 06/26/18 16:55 - Physical Exam Comments: General: Comfortable, no acute distress HEENT: PERRL, EOMI, MMM, voice normal, normal neck ROM, no LAD Cards: RRR, no murmur appreciated Pulm: Comfortable on room air, clear to auscultation bilaterally Abd: Soft, nontender, nondistended Ext: LLE great toe visibily swollen, erythematous, nontender. No open wounds. No bleeding or drainage. Palpable DP. Sensation to light touch intact. ROM intact in great toe Vasc: Extremities WWP. Neuro: A&Ox3, CN grossly intact, normal speech, motor/sensory grossly intact and symmetric Psych: Mood appropriate to situation ED Treatment Course - LABORATORY CBC & Chemistry Diagram: 06/26/18 18:03 06/26/18 18:03 - RADIOLOGY Radiology Studies Ordered: Category Date Time Status FOOT-LEFT [RAD] Stat Radiology 06/26/18 17:53 Ordered TOE(S) LEFT [RAD] Stat Radiology 06/26/18 17:53 Ordered Medical Decision Making - Medical Decision Making 06/26/18 18:39 Selvin Davidson is a 73yo man with multiple chronic medical conditions and known left great toe osteomyelitis who presents today complaining of left foot and ankle swelling yesterday after significant walking; the swelling has nearly resolved at this point and is located only on the left great toe. There is no tenderness, open wound, or sign of new infection. He has been receiving his IV ceftriaxone as directed without apparently missing any treatments. - Per chart review, Mr Davidson was advised to go to the ED yesterday for evaluation but refused. His symptoms have improved, nearly resolved. - Will obtain CBC with diff, lactate, chemistry to evaluate for any new or worsening infection - If no sign of acute infection, will discharge to follow up in wound clinic and hyperbarics - Spoke with ID via phone. Agree with plan. 06/26/18 19:11 - WBC 8.4 today from 7.4 on 06/18 - Xrays consistent with known left great toe osteomyelitis - Will discharge home - May return to regularly scheduled wound treatment Discussed with Dr Catalan. *DC/Admit/Observation/Transfer Diagnosis at time of Disposition: Osteomyelitis - Discharge Dispostion Disposition: HOME Condition at time of disposition: Good Decision to Admit order: No - Referrals Referrals: Juan Ramon Boswell MD [Primary Care Provider] - - Patient Instructions Additional Instructions: Discharge Instructions: - You were seen in the ED for swelling to your left big toe - There was no sign of worsening or new infection on xrays or blood tests - You may return to your regularly scheduled hyperbaric treatments - Please continue your IV antibiotics as scheduled - Return to the ED if you have swelling combined with pain, fever to 101F or higher, redness spreading up her leg, or new open wounds - Post Discharge Activity
[2018-06-26 18:22] LABS: BASO % 1.3 % (0-2.0); EOS % 1.7 % (0-4.5); HEMATOCRIT 37.4 % (35.4-49); HEMOGLOBIN 12.5 GM/dL (11.7-16.9); LYMPH % 9.4 % (8-40); MCH 31.2 pg (25.7-33.7); MCHC 33.4 g/dl (32.0-35.9); MEAN CELL VOLUME 93.3 fl (80-96); MEAN PLT VOLUME 8.1 fl (7.5-11.1); NEUT % 79.6 % (42.8-82.8); PLATELET COUNT 315 K/MM3 (134-434); RBC 4.01 M/mm3 (4.00-5.60); RDW 13.8 % (11.9-15.9); WHITE BLOOD COUNT 8.4 K/mm3 (4.0-10.0)
[2018-06-26 18:36] VITALS: TEMP 98.7
--- NOTE | 2018-06-26 18:36 | PDOC ---
Attending Attestation - Resident Resident Name: Dunia James - ED Attending Attestation I have performed the following: I have examined & evaluated the patient, The case was reviewed & discussed with the resident, I agree w/resident's findings & plan, Exceptions are as noted - Medical Decision Making 06/26/18 18:34 I, Dr. Justina Catalan, DO, attest that this document has been prepared under my direction and personally reviewed by me in its entirety. I further attest, that it accurately reflects all work, treatment, procedures and medical decision -making performed by me. 06/26/18 18:34 a/p: 73yo male with osteo currently on rocephin daily infusions with Dr. Toney -osteo to big toe -picc to R chest wall -was walking more yesterday with increased swelling, which went down last night -pt with redness to great toe R without lymphangitic spread -no f/c -will check labs, received rocephin infusion today -will repeat xray -will discuss with ID <Justina Catalan - Last Filed: 06/26/18 18:34> - HPI HPI: 06/26/18 19:11 The patient is a 73-year-old male, with a past medical history of HTN, DM, CAD s /p stent, and lung ca x2, who presents to the ED with left great toe osteomyelitis, on IV antibiotics. Patient noted increased foot swelling yesterday. - Physicial Exam PE: 06/26/18 19:16 GENERAL: Awake, alert, and fully oriented, in no acute distress HEAD: No signs of trauma EYES: PERRLA, EOMI, sclera anicteric, conjunctiva clear ENT: Auricles normal inspection, hearing grossly normal, nares patent, oropharynx clear without exudates. Moist mucosa NECK: Normal ROM, supple, no lymphadenopathy, JVD, or masses LUNGS: Breath sounds equal, clear to auscultation bilaterally. No wheezes, and no crackles HEART: Regular rate and rhythm, normal S1 and S2, no murmurs, rubs or gallops ABDOMEN: Soft, nontender, normoactive bowel sounds. No guarding, no rebound. No masses EXTREMITIES: (+)Left great toe is erythematous but no lymphadenitis spread, trace edema to the left ankle but no warmth, no open wounds, no drainage noted. Normal range of motion. No clubbing or cyanosis. No cords. NEUROLOGICAL: Cranial nerves II through XII grossly intact. Normal speech, normal gait SKIN: Warm, Dry, normal turgor. <Kamala Zimmerman - Last Filed: 06/26/18 19:45> Attestations - Attestations 06/26/18 19:44 Documentation prepared by Kamala Zimmerman, acting as medical appointment clerk for Justina Catalan DO. <Kamala Zimmerman - Last Filed: 06/26/18 19:45>
[2018-06-26 18:49] LABS: ANION GAP 10 MMOL/L (8-16); BLOOD UREA NITROGEN 33 mg/dL (7-18); CALCIUM 8.4 mg/dL (8.5-10.1); CHLORIDE 106 mmol/L (98-107); CO2 24 mmol/L (21-32); CREATININE 1.5 mg/dL (0.7-1.3); GLUCOSE,RANDOM 195 mg/dL (74-106); POTASSIUM 5.1 mmol/L (3.5-5.1); SODIUM 140 mmol/L (136-145)
== END 2018-06-26 20:10 | disposition home or self-care (01) ==
LOC: JER 16:46
DX: M86.9 Osteomyelitis, unspecified (principal)
CPT/HCPCS: 36415; 73630-TC-LT; 73660-TC-LT-FY; 80048; 83605; 85025; 99283-25

== ENCOUNTER → 2018-06-27 | Day surgery (SDC) | payer OTHER, MEDICARE ==
[~2018-06-27] MED LIST changes: -CEFTRIAXONE 2 GM in DEXTROSE 5%-WATER 100 ML IVPB ONE; +CEFTRIAXONE 2 GM in SODIUM CHLORIDE 100 ML IVPB ONE; +cefTRIAXone SODIUM 1 GM VIAL ONE
[2018-06-27 15:18] VITALS: BP 115/66; PULSE 61; TEMP 98.2
== END | disposition home or self-care (01) ==
LOC: JINFUSION 13:23
PROVIDERS: ATTEND Internal Medicine
DX: M86.172 Other acute osteomyelitis, left ankle and foot (principal)
CPT/HCPCS: 36415; 82962; 85651; 86140; 96365

== ENCOUNTER 2018-07-01 14:09 | Day surgery (SDC) | payer OTHER, MEDICARE ==
[~2018-07-01 14:09] MED LIST changes: +CEFTRIAXONE 2 GM in DEXTROSE 5%-WATER 100 ML IVPB ONE; -CEFTRIAXONE 2 GM in SODIUM CHLORIDE 100 ML IVPB ONE; -cefTRIAXone SODIUM 1 GM VIAL ONE
[2018-07-01 14:49] VITALS: BP 126/71; PULSE 55; TEMP 98.3
== END 2018-07-01 15:23 | disposition home or self-care (01) ==
LOC: JINFUSION 14:09
PROVIDERS: ATTEND Internal Medicine
DX: M86.172 Other acute osteomyelitis, left ankle and foot (principal)
CPT/HCPCS: 82962; 96365; G0277; G0463

== ENCOUNTER 2018-07-02 13:48 | Day surgery (SDC) | payer OTHER, MEDICARE ==
[2018-07-02 14:10] LABS: HEMATOCRIT 40.6 % (35.4-49); HEMOGLOBIN 13.7 GM/dL (11.7-16.9); MCH 31.2 pg (25.7-33.7); MCHC 33.7 g/dl (32.0-35.9); MEAN CELL VOLUME 92.4 fl (80-96); MEAN PLT VOLUME 8.4 fl (7.5-11.1); PLATELET COUNT 248 K/MM3 (134-434); RDW 13.6 % (11.9-15.9); WHITE BLOOD COUNT 9.2 K/mm3 (4.0-10.0)
[2018-07-02 14:29] VITALS: BP 105/61; PULSE 57; TEMP 98.1
[2018-07-02 14:39] LABS: ALBUMIN 3.2 g/dl (3.4-5.0); ANION GAP 4 MMOL/L (8-16); BILIRUBIN,TOTAL 0.5 mg/dL (0.2-1.0); BLOOD UREA NITROGEN 43 mg/dL (7-18); CALCIUM 9.2 mg/dL (8.5-10.1); CHLORIDE 107 mmol/L (98-107); CO2 28 mmol/L (21-32); CREATININE 1.6 mg/dL (0.7-1.3); GLUCOSE,RANDOM 214 mg/dL (74-106); POTASSIUM 5.2 mmol/L (3.5-5.1); SGOT/AST 14 U/L (15-37); SGPT/ALT 22 U/L (12-78); SODIUM 139 mmol/L (136-145); TOT PROT 6.8 g/dl (6.4-8.2)
[2018-07-02 14:40] LABS: ALK PHOS 149 U/L (45-117)
[2018-07-02 16:36] LABS: ERYTHROCYTE SEDIMENTATION RATE 20 mm/hr (0-20)
== END 2018-07-02 14:57 | disposition home or self-care (01) ==
LOC: JINFUSION 13:48
PROVIDERS: ATTEND Internal Medicine
DX: M86.172 Other acute osteomyelitis, left ankle and foot (principal)
CPT/HCPCS: 36415; 80053; 82962; 85027; 85651; 86140; 96365; G0277

== ENCOUNTER 2018-07-03 11:16 | Emergency (ER) | payer OTHER, MEDICARE ==
[2018-07-03 11:31] VITALS: TEMP 98.4; BMI 23.3
--- NOTE | 2018-07-03 11:35 | PDOC ---
History of Present Illness - General Chief Complaint: PICC Line Insertion Stated Complaint: PICC LINE PROBLEM Time Seen by Provider: 07/03/18 11:32 History Source: Patient Exam Limitations: No Limitations - History of Present Illness Initial Comments: 07/03/18 11:51 CHIEF COMPLAINT: PICC problem HISTORY OF PRESENT ILLNESS: This is a 73-year-old male with NIDDM, CAD s/p stents, renal ca, bladder ca, lung ca, glaucoma, gout, and osteomyelitis of the left great toe on daily Ceftriaxone. He had a PICC placed here on 06/18 for 5 weeks of antibiotics. He presents today after the PICC "fell out." He does not know how this happened and does not know where the line is. He thinks it may have been dislodged when he changed his shirt this morning. He had some light bleeding and applied a bandage. He denies chest pain, shortness, of breath, fevers/chills, or any other symptoms. His toe is improving. ID: Dr Toney REVIEW OF SYSTEMS: GENERAL/CONSTITUTIONAL: No fever or chills. No weakness. No weight change. CARDIOVASCULAR: No chest pain or palpitations. RESPIRATORY: No cough, wheezing, or shortness of breath. SKIN: No rash or easy bruising. HEMATOLOGIC/LYMPHATIC: No anemia, easy bleeding, or history of blood clots. ALLERGIC/IMMUNOLOGIC: No hives or skin allergy. No latex allergy. PHYSICAL EXAM: GENERAL: The patient is awake, alert, and fully oriented, in no acute distress. HEAD: Normal with no signs of trauma. ENT: Pupils equal, round and reactive to light, extraocular movements intact, sclera anicteric, conjunctiva clear. Neck supple. LUNGS: Clear to auscultation bilaterally. Normal excursion. No respiratory distress or use of accessory muscles. CV: RRR, S1/S2, no MRG. Cap refill < 2 sec. NEUROLOGICAL: Normal speech, normal gait. CN II-XII grossly intact. PSYCH: Normal mood, normal affect. SKIN: Warm, dry, normal turgor, no rashes or lesions noted. Past History - Past Medical History Allergies/Adverse Reactions: Allergies Allergy/AdvReac Type Severity Reaction Status Date / Time No Known Allergies Allergy Verified 07/03/18 11:31 Home Medications: Ambulatory Orders Allopurinol 300 mg PO DAILY 10/12/16 Amlodipine Besylate [Norvasc -] 5 mg PO DAILY 10/12/16 Aspirin [ASA -] 81 mg PO DAILY 10/12/16 Calcium Citrate/Vitamin D3 [Calcium Citrate - Vit D Caplet] 1 each PO DAILY Cholecalciferol (Vitamin D3) [Vitamin D3] 2,000 unit PO DAILY 10/12/16 Clopidogrel Bisulfate [Clopidogrel] 75 mg PO DAILY 10/12/16 Cyanocobalamin [Vitamin B12 -] 1,000 mcg PO DAILY 10/12/16 Fluoxetine HCl 40 mg PO DAILY 10/12/16 Glipizide [Glipizide ER] 10 mg PO DAILY 10/12/16 Insulin Detemir [Levemir Flextouch] 10 unit SQ HS 10/12/16 Liraglutide [Victoza -] 1.2 mg SQ DAILY@0700 10/12/16 Methylphenidate HCl 20 mg PO ASDIR PRN 10/12/16 Metoprolol Succinate [Toprol XL -] 12.5 mg PO DAILY 10/12/16 Ropinirole HCl [Requip -] 3 mg PO TID PRN 10/12/16 Vardenafil HCl [Levitra] 20 mg PO PRN PRN 10/12/16 Picc Line Flush [Picc Line Flush -] 8 ml IVPUSH PRN PRN ml 06/18/18 Atorvastatin Ca [Lipitor] 40 mg PO HS 07/03/18 Anemia: No Asthma: No Cancer: Yes (LUNGx2 , 2010BLADDER and kidney) Cardiac Disorders: Yes (STENT X1, Enlarged heart) CVA: No COPD: No CHF: No Dementia: No Diabetes: Yes (TYPE II) GI Disorders: Yes (perforated ulcer) HTN: Yes Hypercholesterolemia: Yes Liver Disease: No Seizures: No Thyroid Disease: No - Surgical History Abdominal Surgery: No Appendectomy: No Cardiac Surgery: Yes (stent) Cholecystectomy: No Lung Surgery: Yes (LEFT LOBECTOMY) Orthopedic Surgery: No - Suicide/Smoking/Psychosocial Hx Smoking History: Never smoked Have you smoked in the past 12 months: No If you are a former smoker, when did you quit?: 30 YRS AGO Information on smoking cessation initiated: No Hx Alcohol Use: No Drug/Substance Use Hx: No Substance Use Type: Alcohol Hx Substance Use Treatment: Yes *Physical Exam - Vital Signs Last Vital Signs Temp Pulse Resp BP Pulse Ox 98.4 F 65 17 156/78 97 07/03/18 11:27 07/03/18 11:27 07/03/18 11:27 07/03/18 11:27 07/03/18 11:27 ED Treatment Course - LABORATORY CBC & Chemistry Diagram: 07/03/18 13:00 07/03/18 13:00 Medical Decision Making - Medical Decision Making 07/03/18 12:03 A/P: 73-year-old male presenting for PICC line replacement. Discussed with IR - will place tunneled CVC. 07/03/18 16:28 Patient returned from IR s/p CVC placement under fluoroscopy without use of sedation. He is complaining of new onset dyspnea, stating that this frequently happens to him when he needs to lay flat for a procedure. His v/s including SpO2 are all within normal limits. He appears somewhat lethargic. Portable CXR was ordered to confirm no PTX and ABG sent to r/o CO2 narcosis - PaCO2 32. EKG NSR at 66 bpm with left axis deviation and non-specific intraventricular conduction delay. (LBBB and junctional bradycardia noted on prior EKG in May). Patient then complained of left arm numbness and weakness, stating "I feel like my arm is useless." He states that both arms were initially numb after the procedure, and that now his left arm is numb but improving. FSBG is 162. Will obtain CT brain. 07/03/18 18:13 CT Brain - no acute process. Patient reports that strength in his left arm has fully returned. His speech is clear and fluent. He is alert and oriented and ambulating steadily. He has no shortness of breath. He insists that he has had similar symptoms during prior procedures and that he now feels well. Overnight observation was recommended to him, but he declines. He states that his neighbor helps care for him and that he feels comfortable going home this evening. Will give his home Rocephin dose prior to dc. *DC/Admit/Observation/Transfer Diagnosis at time of Disposition: Dyspnea Qualifiers: Dyspnea type: other forms of dyspnea Qualified Code(s): R06.09 - Other forms of dyspnea Central line complication Qualifiers: Encounter type: initial encounter Qualified Code(s): T82.9XXA - Unspecified complication of cardiac and vascular prosthetic device, implant and graft, initial encounter - Discharge Dispostion Disposition: HOME Condition at time of disposition: Stable Decision to Admit order: No - Referrals - Patient Instructions Printed Discharge Instructions: DI for Central Line Catheter Additional Instructions: -Keep your catheter site clean and dry -Return for signs of infection, including redness or tenderness at the insertion site or fevers/chills - Post Discharge Activity
[2018-07-03] MEDS ORDERED: PICC LINE 8 ML FLUSH PROTOCOL IVPUSH PRN (11:46)
[2018-07-03 13:21] LABS: BASO % 0.1 % (0-2.0); HEMATOCRIT 38.5 % (35.4-49); HEMOGLOBIN 12.9 GM/dL (11.7-16.9); LYMPH % 10.6 % (8-40); MCH 30.9 pg (25.7-33.7); MCHC 33.6 g/dl (32.0-35.9); MEAN CELL VOLUME 91.9 fl (80-96); MEAN PLT VOLUME 8.4 fl (7.5-11.1); MONO % 7.6 % (3.8-10.2); NEUT % 79.7 % (42.8-82.8); PLATELET COUNT 200 K/MM3 (134-434); RBC 4.19 M/mm3 (4.00-5.60); RDW 13.6 % (11.9-15.9); WHITE BLOOD COUNT 8.5 K/mm3 (4.0-10.0)
[2018-07-03 13:30] LABS: INR 1.1 (0.83-1.09); PROTHROMBIN TIME (PATIENT) 12.4 SEC (9.7-13.0)
[2018-07-03 13:41] LABS: BLOOD UREA NITROGEN 39 mg/dL (7-18); CREATININE 1.5 mg/dL (0.55-1.3); GLUCOSE,RANDOM 134 mg/dL (74-106)
[2018-07-03 13:42] LABS: ANION GAP 7 MMOL/L (8-16); CALCIUM 9.1 mg/dL (8.5-10.1); CHLORIDE 108 mmol/L (98-107); CO2 28 mmol/L (21-32); POTASSIUM 5.2 mmol/L (3.5-5.1); SODIUM 143 mmol/L (136-145)
[2018-07-03 16:36] LABS: ARTERIAL BLD GAS O2 SATURATION 99.5 % (90-98.9); ARTERIAL BLOOD GAS BASE EXCESS 1.1 meq/l (-2-2); ARTERIAL BLOOD GAS pH 7.48 (7.35-7.45)
[2018-07-03] MEDS ORDERED: CEFTRIAXONE 2,000 MG in DEXTROSE 5%-WATER - 50 ML IVPB ONE (18:18)
[2018-07-03] MEDS ORDERED: CEFTRIAXONE 2 GM/100 ML BAG IVPB ONE (18:31)
[2018-07-03 19:07] VITALS: BP 160/90; PULSE 74
--- NOTE | 2018-07-04 09:31 | EKG ---
Test Reason : Blood Pressure : / mmHG Vent. Rate : 066 BPM Atrial Rate : 066 BPM P-R Int : 208 ms QRS Dur : 174 ms QT Int : 470 ms P-R-T Axes : 025 -47 107 degrees QTc Int : 492 ms NORMAL SINUS RHYTHM WITH 1ST DEGREE A-V BLOCK POSSIBLE DEMAND VENTRICULAR PACEMAKER POSSIBLE LEFT ATRIAL ENLARGEMENT LEFT AXIS DEVIATION LEFT BUNDLE BRANCH BLOCK INFERIOR INFARCT , AGE UNDETERMINED ABNORMAL ECG WHEN COMPARED WITH ECG OF 16-JUN-2018 04:13, SINUS RHYTHM HAS REPLACED JUNCTIONAL RHYTHM VENT. RATE HAS INCREASED BY 23 BPM T WAVE AMPLITUDE HAS INCREASED IN ANTERIOR LEADS Confirmed by MIGDALIA WING MD ([id number]) on 07/04/2018 9:30:30 AM Referred By: Confirmed By:MIGDALIA WING MD
== END 2018-07-03 19:07 | disposition home or self-care (01) ==
LOC: JER 11:16
PROC: 3E043GC Introduction of Other Therapeutic Substance into Central Vein, Percutaneous Approach (ICD-10-PCS; principal; 2018-07-03)
PROC: 0JH63XZ Insertion of Tunneled Vascular Access Device into Chest Subcutaneous Tissue and Fascia, Percutaneous Approach (ICD-10-PCS; 2018-07-03)
PROC: 02HV33Z Insertion of Infusion Device into Superior Vena Cava, Percutaneous Approach (ICD-10-PCS; 2018-07-03)
PROC: B518ZZA Fluoroscopy of Superior Vena Cava, Guidance (ICD-10-PCS; 2018-07-03)
DX: T82.524A Displacement of infusion catheter, initial encounter (principal); M86.8X8 Other osteomyelitis, other site; I25.10 Atherosclerotic heart disease of native coronary artery without angina pectoris; I10 Essential (primary) hypertension; Z95.5 Presence of coronary angioplasty implant and graft; E11.628 Type 2 diabetes mellitus with other skin complications; Z79.4 Long term (current) use of insulin; Z79.84 Long term (current) use of oral hypoglycemic drugs; M10.9 Gout, unspecified; Z85.118 Personal history of other malignant neoplasm of bronchus and lung; Z85.528 Personal history of other malignant neoplasm of kidney; Z85.51 Personal history of malignant neoplasm of bladder
CPT/HCPCS: 36415; 36558; 36600; 70450-TC; 71045-TC-FY; 77001-TC-FY; 80048; 82803; 82962; 85025; 85610; 93005; 93010; 99282-25; C1751